=== PATIENT | female | born 1940 | race Caucasian/White ===

== ENCOUNTER 2017-01-19 14:32 | Outpatient (CLI) | payer MEDICARE, OTHER ==
--- NOTE | 2017-01-19 19:27 | RAD ---
PA AND LATERAL OF THE CHEST: 01/19/17 INDICATION: History of dyspnea. COMPARISON: Prior exam dated 03/07/10. FINDINGS: Prominent COPD change is similar. Thoracolumbar scoliosis and vascular calcification of the aortic a rch is similar. No acute air space opacification, pleural effusion, pneumothorax is evident. No def inite acute osseous abnormality is evident. IMPRESSION: No acute cardiopulmonary abnormality. POS: [facility]
== END 2017-01-19 14:33 | disposition home or self-care (01) ==
LOC: CP 14:32
PROVIDERS: ATTEND Internal Medicine
DX: R06.00 Dyspnea, unspecified (principal); F17.200 Nicotine dependence, unspecified, uncomplicated
CPT/HCPCS: 71020; 94010; 94727; 94729

== ENCOUNTER 2017-07-01 10:05 | Outpatient (CLI) | payer MEDICARE, OTHER | END 2017-07-01 10:06 | disposition home or self-care (01) | LOC: BICMAMMO 10:05 | PROVIDERS: ATTEND Internal Medicine | DX: Z12.31 Encounter for screening mammogram for malignant neoplasm of breast (principal); Z13.820 Encounter for screening for osteoporosis; Z85.89 Personal history of malignant neoplasm of other organs and systems; Z78.0 Asymptomatic menopausal state | CPT/HCPCS: 77063; 77067; 77080 ==

== ENCOUNTER 2017-09-17 07:44 | Outpatient (CLI) | payer MEDICARE, OTHER | END 2017-09-17 07:45 | disposition home or self-care (01) | LOC: BICCT 07:44 | PROVIDERS: ATTEND Internal Medicine | DX: R51 Headache (principal) | CPT/HCPCS: 70450 ==

== ENCOUNTER 2018-10-17 15:46 | Inpatient (IN) | payer MEDICARE, OTHER ==
--- NOTE | 2018-10-17 16:44 | RAD ---
EXAM: Lumbar spine 3 views: HISTORY: Injury from a fall 3 weeks ago with hip and lower back pain COMPARISON: None FINDINGS: Diffuse bony demineralization. No evidence for acute fracture or dislocation involving the visualized spine. There are disc osteophytosis and facet arthrosis changes. Minimal grade 1 anterolisthesis of L4 and L5. Mild levoscoliosis. No evidence for a bone lesion. IMPRESSION: Spondylosis. Findings as above.
--- NOTE | 2018-10-17 16:47 | RAD ---
Radiograph sacrum and coccyx 3 views: DATE: 10/17/2018 HISTORY: 78-year-old female with posttraumatic sacrococcygeal pain after fall. FINDINGS: Multilevel severe degenerative disc disease and severe facet DJD at lower lumbar spine. Grade 1 spond ylolisthesis at L4-5. The diffuse osteopenia and the overlying bowel gas and stool, could obscure a sacrococcygeal fracture. Distal tips of gamma nails in the bilateral femoral heads are visualized. On the lateral view, there is mild anterior positioning of the coccyx relative to the lower sacrum. The distal tip of the coccyx is excluded from the coned-down lateral view. IMPRESSION: 1. Questionable fracture at the sacrococcygeal junction. 2. Severe lumbar spondylosis with severe lower level facet osteoarthrosis and L5-S1 severe degenerati ve disc disease, plus grade 1 spondylolisthesis at L4-5.
--- NOTE | 2018-10-17 16:52 | RAD ---
TWO VIEWS RIGHT HIP: Comparison: None. History: Fall with right hip pain. FINDINGS: Two views of the right hip shows the patient to be status post ORIF of the right proximal femur with intramedullary dori. No acute fracture or dislocation is seen. No significant degenerative change is s een in the right hip. IMPRESSION: No evidence of acute osseous abnormality. POS: [facility]
[2018-10-17] MEDS ORDERED: Ondansetron ODT 4 MG TAB ONE (18:00)
--- NOTE | 2018-10-17 20:22 | CT ---
CT PELVIS WITHOUT CONTRAST: HISTORY: Fall three weeks ago with right hip and low back pain. COMPARISON: None. TECHNIQUE: Multiple contiguous axial images were obtained in a CT of the pelvis without contrast. Sagittal and coronal reformats were performed. FINDINGS: Hardware is seen at the proximal aspects of both femurs. There is no evidence of acute fracture or d islocation. Degenerative changes are seen in the lumbar spine. Atherosclerotic calcifications are seen in the ao rta. The visualized intrapelvic structures are otherwise unremarkable. IMPRESSION: No evidence of acute osseous abnormality. POS: [facility]
[2018-10-17] MEDS ORDERED: Ketorolac Tromethamine 30 MG/ML VIAL ONE (20:44)
[2018-10-17] MEDS ORDERED: Ondansetron PF 4 MG/2 ML Vial ONE (22:21)
[2018-10-17] MEDS ORDERED: traZODone HCl 50 MG TAB ONE (22:21)
[2018-10-18] MEDS ORDERED: traMADol HCl 50 MG TAB ONE ×2 (05:44→12:46)
[2018-10-18] MEDS ORDERED: Acetaminophen 650 MG Suppository PR PRN (08:19)
[2018-10-18] MEDS ORDERED: Senokot S 8.6-50 MG TAB PO PRN (08:19)
[2018-10-18] MEDS ORDERED: Sodium Chloride 0.65% Nasal 44 ML BOT EA NARE PRN (08:19)
[2018-10-18] MEDS ORDERED: Nitroglycerin 0.4 MG TAB (25 Tab Bottle) SL PRN (08:19)
[2018-10-18] MEDS ORDERED: Loratadine 10 MG TAB PO PRN (08:19)
[2018-10-18] MEDS ORDERED: Calcium Carbonate 500 MG ChewTAB PO PRN (08:19)
[2018-10-18] MEDS ORDERED: hydrALAZINE 20 MG/ML VIAL SLOW IVP PRN (08:19)
[2018-10-18] MEDS ORDERED: cloNIDine 0.1 MG TAB PO PRN (08:19)
[2018-10-18] MEDS ORDERED: Benzonatate 100 MG CAP PO PRN (08:19)
[2018-10-18] MEDS ORDERED: Bisacodyl 5 MG TAB PO PRN (08:19)
[2018-10-18] MEDS ORDERED: Diabetic Tussin 200 MG/10 ML UDCUP PO PRN (08:19)
[2018-10-18] MEDS ORDERED: Famotidine 20 MG TAB ONE (08:47)
[2018-10-18] MEDS ORDERED: Enoxaparin Sodium 40 MG/0.4 ML SYRINGE ONE (08:49)
[2018-10-18] MEDS ORDERED: Ondansetron PF 4 MG/2 ML Vial ONE (08:49)
[2018-10-18 08:57] LABS: #Eosinphils 0.1 thou/uL (0.0-0.7); #Lymphocytes 0.7 thou/uL (1.20-3.40); #Monocytes 0.5 thou/uL (0.11-0.59); #Neutrophils 4.7 thou/uL (1.40-6.50); %Basophils 0.3 % (0.0-1.0); %Eosinophils 1.7 % (0.0-10.0); %Lymphocytes 12.1 % (21.0-51.0); %Monocytes 7.5 % (0.0-10.0); %Neutrophils 78.5 % (42.0-75.0); Hemoglobin 11.4 g/dL (12.0-16.0); Mean Corpuscular HGB CONC 32.9 g/dL (32.0-36.0); Mean Corpuscular Hemoglobin 29.4 pg (27.0-31.0); Mean Corpuscular Volume 89.1 fL (78.0-98.0); Mean Platelet Volume 6.3 fL (7.4-10.4); Platelet Count 250 thou/uL (130-400); RBC Distribution Width 12.3 % (11.5-14.5); Red Blood Cell (RBC) Count 3.89 mill/uL (4.20-5.40)
[2018-10-18 09:18] LABS: ALT (SGPT) 22 U/L (8-55); AST (SGOT) 25 U/L (5-34); Albumin 3.7 g/dL (3.4-4.8); Alkaline Phosphatase 104 U/L (40-150); Anion Gap 12 mmol/L (10-20); BUN (Urea Nitrogen) 5 mg/dL (9.8-20.1); Bilirubin, Total 0.8 mg/dL (0.2-1.2); Calc. Creatinine Clearance 0 mL/min (70-130); Calcium 8.9 mg/dL (7.8-10.44); Carbon Dioxide 22 mmol/L (23-31); Chloride 90 mmol/L (98-107); Estimated GFR-MDRD 89; Globulin 2.2 g/dL (2.4-3.5); Glucose 91 mg/dL (83-110); Potassium 3.7 mmol/L (3.5-5.1); Protein, Total 5.9 g/dL (6.0-8.3); Sodium 120 mmol/L (136-145)
[2018-10-18] MEDS: Ondansetron PF 4 MG/2 ML Vial IVP PRN ×2 (09:42→21:26)
[2018-10-18] MEDS: Famotidine 20 MG TAB PO SCH ×2 (09:42→21:21)
[2018-10-18] MEDS: Enoxaparin Sodium 40 MG/0.4 ML SYRINGE SC SCH (09:42)
[2018-10-18] MEDS ORDERED: Morphine 4 MG/ML VIAL ONE ×2 (09:56→14:16)
[2018-10-18] MEDS: Morphine 4 MG/ML VIAL SLOW IVP PRN ×2 (09:57→14:28)
[2018-10-18] MEDS: traMADol HCl 50 MG TAB PO PRN ×2 (12:48→21:21)
[2018-10-18] MEDS ORDERED: Sodium Chloride 0.9% 1,000 ML IV SCH (14:45)
[2018-10-18 19:52] VITALS: BMI 21.4
[2018-10-18 20:41] LABS: Anion Gap 13 mmol/L (10-20); BUN (Urea Nitrogen) 4 mg/dL (9.8-20.1); Calc. Creatinine Clearance 68 mL/min (70-130); Calcium 9.2 mg/dL (7.8-10.44); Carbon Dioxide 23 mmol/L (23-31); Chloride 95 mmol/L (98-107); Estimated GFR-MDRD Greater than 90; Glucose 94 mg/dL (83-110); Potassium 3.7 mmol/L (3.5-5.1); Sodium 127 mmol/L (136-145)
[2018-10-18 21:33] LABS: Bilirubin Negative (Negative); Blood, Urine Trace (Negative); Glucose, Urine (Dipstick) Negative (Negative); Leukocyte Trace (Negative); Nitrite Negative (Negative); Protein, Urine (Dipstick) Negative (Neg-Trace); Urobilinogen 0.2 mg/dL (Less than 2)
[2018-10-18 21:35] LABS: Clarity Clear (Clear)
[2018-10-18 21:41] LABS: Bacteria/HPF None Seen HPF (None Seen); RBC/HPF 0-3 HPF (0-3); Squamous Epithelial 0-3 HPF (0-3); WBC/HPF 0-3 HPF (0-3)
[2018-10-18 21:42] LABS: Urine Culture Reflex Yes Yes
[2018-10-19] MEDS: Morphine 4 MG/ML VIAL SLOW IVP PRN ×2 (01:44→20:08)
--- NOTE | 2018-10-19 02:06 | CON ---
DATE OF CONSULTATION: 10/18/2018 CONSULTING PHYSICIAN: Dr. Moreno. REASON FOR CONSULT: Hyponatremia. REASON FOR ADMISSION: Fall. HISTORY OF PRESENT ILLNESS: An 78-year-old elderly white female with past medical history of hypertension, hypothyroidism, basal cell carcinoma, hernia, came to the hospital with above complaints. The patient has been not feeling well and not eating well for the last few days. The patient also was in pain from a fall 3 weeks back. Her son was at the bedside. The patient was not able to give good history. No chest pain or palpitation. No fever or chills. No vomiting or diarrhea. The patient was nauseated last few days. PAST MEDICAL HISTORY: Positive for hypertension, hypothyroidism, basal cell carcinoma, neurogenic bladder. PAST SURGICAL HISTORY: Appendectomy, tonsillectomy, hysterectomy, cholecystectomy, bladder suspension, bilateral hip surgery. HOME MEDICATIONS: Include; 1. Sertraline. 2. Benazepril. 3. Trazodone. 4. Levothyroxine. 5. Methocarbamol. 6. Vitamin D3. 7. . 8. Zetia. 9. Gabapentin. 10. Amitiza. 11. Myrbetriq. 12. Pantoprazole. 13. Ranitidine. 14. VESIcare. 15. Tramadol. ALLERGIES: TO CODEINE, PENICILLIN, PREDNISONE, PYRIDIUM, VALIUM, AND VICODIN. SOCIAL HISTORY: No smoking, alcohol, or illicit drugs. FAMILY HISTORY: No history of kidney disease. REVIEW OF SYSTEMS: REVIEW OF SYSTEMS: CONSTITUTIONAL: Negative for weight loss or gain, ability to conduct usual activities. SKIN: Negative for rash, itching. EYES: Negative for double vision, pain. ENT/MOUTH: Negative for nose bleeding, neck stiffness, pain, tenderness. CARDIOVASCULAR: Negative for palpitations, dyspnea on exertion, orthopnea. RESPIRATORY: Negative for shortness of breath, wheezing, cough, hemoptysis, fever or night sweats. GASTROINTESTINAL: Negative for poor appetite, abdominal pain, heartburn, nausea, vomiting, constipation, or diarrhea. GENITOURINARY: Negative for urgency, frequency, dysuria, nocturia. MUSCULOSKELETAL: Negative for pain, swelling. NEUROLOGIC/PSYCHIATRIC: Negative for anxiety, depression. ALLERGY/IMMUNOLOGIC: Negative for skin rash, bleeding tendency. Rest all negative. PHYSICAL EXAMINATION: GENERAL: This is an elderly, thin female, in no apparent distress. VITAL SIGNS: Temperature 98.3, pulse 101, respiratory rate 16, blood pressure 124/79. HEENT: Atraumatic, normocephalic. Oral mucosa is dry. NECK: Supple. CV: S1 and S2 heard. Rate and rhythm regular. RESPIRATORY: Clear. GI: Abdomen is soft. MUSCULOSKELETAL: No tenderness. No edema. DERMATOLOGIC: No skin rash. NEUROLOGIC: Alert, awake. PSYCHIATRIC: Normal mood and affect. NEUROLOGIC: Alert, awake. Psych: LABORATORY DATA: Hemoglobin is 11.4, potassium 3.7, sodium is 120, bicarb is 22, BUN is 5, creatinine is 0.6. ASSESSMENT AND PLAN: 1. Hyponatremia, most likely from volume depletion. Agree with IV hydration. Medications could be inducing hyponatremia too. 2. Hyperkalemia. 3. Metabolic acidosis, mild. 4. Edema, controlled. 5. Hypertension. 6. Anemia. Continue IV fluids. Monitor serum sodium closely. We will check osmolalities and urine studies. We will follow. Thank you for the consult. Monitor sodium closely. Job ID: [id number]
[2018-10-19] MEDS: traMADol HCl 50 MG TAB PO PRN ×3 (04:07→14:53)
[2018-10-19] MEDS: Ondansetron PF 4 MG/2 ML Vial IVP PRN ×4 (04:09→23:21)
--- NOTE | 2018-10-19 07:48 | SS ---
DATE OF ADMISSION: 10/17/2018 DATE OF DISCHARGE: 10/18/2018 CONDITION AT THE TIME OF DISCHARGE: Stable and improved. DISCHARGE DISPOSITION: Inpatient rehab. PRIMARY CARE PHYSICIAN: Milvia Hall MD DISCHARGE DIAGNOSIS: Intractable back pain, status post fall. HISTORY OF PRESENTING ILLNESS: Ms. Watson is an 78-year-old female with past medical history of hypertension, who presented to the ER after she had sustained a fall. History is mainly obtained by the patient herself, who is very tearful and is breaking up in tears easily during the interview making the interview taking quite difficult. According to the ER history, the patient fell about 3 weeks ago at home and was brought into the emergency room only last night. She was complaining of worsening right hip and posterior buttock pain since the fall. She was having difficulty walking because of the pain. She was unable to get out of the bed and has been progressively getting weaker. She denies any numbness, tingling, nausea, vomiting, diarrhea, chest pain, shortness of breath or head injury. The patient describes the pain as sharp in nature, stabbing in nature, and worsened with activity, really not relieved with rest either. She denies any other injuries. Upon presentation to the emergency room, she was hemodynamically stable with a blood pressure of 124/71 and pulse of 101. In the emergency room, she received multiple pain medications including morphine, tramadol, etc., and Internal Medicine Team was consulted for admission for intractable pain and placement. Multiple imaging studies done in the ER including x-ray of the lumbar spine, sacrum, coccyx, hip were unremarkable for any fractures. A pelvic CT scan was also done, which was also negative for any acute osseous abnormality. PAST MEDICAL HISTORY: 1. Hypertension. 2. Osteoarthritis. 3. Depression. 4. Anxiety. 5. Coronary artery disease. 6. Frequent UTI. SOCIAL HISTORY: She lives with her son according to herself. She has no history of drug, alcohol or tobacco abuse. FAMILY HISTORY: No significant family history of premature coronary artery disease, cancer or stroke. ALLERGIES: CODEINE, DIAZEPAM, HYDROCODONE, PREDNISONE, AND PROPOXYPHENE. HOME MEDICATIONS: Not reconciled, but according to the ER records, she is on followin. Sertraline 100 mg daily. 2. Benazepril 5 mg daily. 3. Trazodone 50 mg daily. 4. . 5. Methocarbamol 500 mg daily. 6. Vitamin D3 1000 units daily. 7. CoQ10 daily. 8. Zetia 10 mg daily. 9. Gabapentin 100 mg daily. 10. Ipratropium b.i.d. 11. . 12. Amitiza 24 mcg b.i.d. 13. Myrbetriq 50 mg daily. 14. Protonix 40 mg daily. 15. Ranitidine daily. 16. VESIcare daily. 17. Tramadol daily. REVIEW OF SYSTEMS: A 14-point review of system is done. It is negative except for those mentioned in the history and physical. CODE STATUS: Code status was not discussed as the patient was discharged as soon as I have examined her as she was accepted for rehab. LABORATORY DATA: I have ordered basic blood work and CBC is unremarkable. Hemoglobin is 11.4. Serum chemistry shows sodium at 120, which seems to be chronic for her, chloride is 90, and bicarb is 22. X-ray of the hip, lumbar spinal, sacrum and coccyx by my review are negative for any acute osseous abnormality. PHYSICAL EXAMINATION: VITAL SIGNS: Most recently, blood pressure 144/80, pulse of 78, respirations 18, temperature 98, and saturating 95% on room air. GENERAL: No acute distress. She is very tearful and keeps crying because she is having trouble with urination. Otherwise in no acute distress. HEENT: Mucous membrane is slightly dry. No oropharyngeal exudate or erythema. Head is normocephalic and atraumatic. Pupils are equal and reactive to light and accommodation. Extraocular movement intact. NECK: Supple without any lymphadenopathy, JVD or bruit. CHEST: Clear to auscultation without any wheezing, rales or rhonchi. HEART: Rate and rhythm are regular without any murmurs, rubs or gallops. ABDOMEN: Soft, nontender, and nondistended with positive bowel sounds. EXTREMITIES: Free of any cyanosis, clubbing or edema. NEUROLOGICAL: Nonfocal. SKIN: Free of any rashes or bruises, feels warm and dry to touch. PSYCHIATRIC: Depressed affect. IMPRESSION AND PLAN: 1. Intractable pain. The patient is status post fall and increasing pain secondary to that. She will be admitted for rehab placement and pain control. We will use heavy narcotics. OT, PT, and case management consultation will be obtained. 2. Hyponatremia, most likely due to polypharmacy. The patient's baseline sodium is around 130. She is on a multitude of antipsychotics, which definitely will cause the low sodium and she also appears clinically dry on exam. We will consult Nephrology and obtain urine and serum osmolality as well as urine sodium, and start her on gentle IV fluid hydration and monitor sodium serially. This appears rather chronic in nature. 3. Hypertension. Restart home medications once reconciled. Meanwhile, she will be started on p.r.n. antihypertensives. 4. Deep venous thrombosis and gastrointestinal prophylaxis. DISPOSITION: Ms. Watson will be admitted under observation status for rehab placement. She has already been accepted for the rehab and was being discharged, but her sodium came back low. At this time, we are trying to hold the discharge and admit her overnight for monitoring of her serum sodium and pain control. Job ID: [id number]
[2018-10-19] MEDS: Famotidine 20 MG TAB PO SCH ×2 (07:49→20:03)
[2018-10-19] MEDS: Enoxaparin Sodium 40 MG/0.4 ML SYRINGE SC SCH (07:49)
[2018-10-19] MEDS ORDERED: Lorazepam 0.5 MG TAB PO PRN (09:10)
[2018-10-19] MEDS ORDERED: BENAZEPRIL HCL 5 MG PO SCH (09:15)
[2018-10-19] MEDS ORDERED: ALIROCUMAB SQ SCH (09:15)
[2018-10-19] MEDS ORDERED: ALIROCUMAB SC SCH (10:00)
[2018-10-19 11:00] LABS: Anion Gap 15 mmol/L (10-20); BUN (Urea Nitrogen) 5 mg/dL (9.8-20.1); Calc. Creatinine Clearance 68 mL/min (70-130); Calcium 9.1 mg/dL (7.8-10.44); Carbon Dioxide 20 mmol/L (23-31); Chloride 95 mmol/L (98-107); Estimated GFR-MDRD Greater than 90; Glucose 107 mg/dL (83-110); Potassium 3.6 mmol/L (3.5-5.1); Sodium 126 mmol/L (136-145)
--- NOTE | 2018-10-19 12:07 | PRG ---
DATE OF SERVICE: 10/19/2018 SUBJECTIVE: Patient was seen and examined at bedside and overnight events noted. Patient denies any shortness of breath or chest pain or palpitation. No history of nausea or vomiting or diarrhea or fever or chills or cramps. OBJECTIVE: GENERAL: This is a well-built female, in no apparent distress. VITAL SIGNS: Temperature 97.7. Heart rate 100. Respiratory rate 20. Blood pressure 121/73. HEENT: Atraumatic, normocephalic. Oral mucosa is moist NECK: Supple. CARDIOVASCULAR: S1, S2 heard. Rate and rhythm regular. RESPIRATORY: Clear to auscultation. GASTROINTESTINAL: Abdomen is soft. MUSCULOSKELETAL: No tenderness. No edema. DERMATOLOGIC: No skin rash. NEUROLOGIC: Alert and awake and oriented X3. No focal neurologic deficits. Moving all the extremities. PSYCHIATRIC: Mood and affect normal. LABORATORY DATA: Sodium is 126, potassium is 3.6, BUN is 5, creatinine is 0.6. ASSESSMENT AND PLAN: 1. Hyponatremia with improvement in creatinine with IV fluids. We will stop IV fluids and monitor. Continue on fluid restrictions. The patient subsequently having multifactorial. 2. Hyperkalemia, better. 3. Metabolic acidosis. 4. Hypertension, stable. 5. Anemia. We will stop IV fluids and monitor. Continue on fluid restrictions. Job ID: [id number]
[2018-10-19] MEDS: Bisacodyl 10 MG SUPP PR PRN (13:18)
--- NOTE | 2018-10-19 14:18 | PDOC.PN ---
- Subjective Encounter Start Date: 10/19/18 Encounter Start Time: 14:16 Subjective: pt fell just now after sorin seen her.possibly hit her head.no LOC -: care discussed w son in morning & he is worried about her home meds -: pt complained of constipation & burning urination - Objective MAR Reviewed: Yes Vital Signs & Weight: Vital Signs (12 hours) Temp Pulse Resp BP BP Pulse Ox 10/19/18 13:14 151/88 H 10/19/18 12:00 97.8 F 90 16 151/88 H 97 10/19/18 07:44 97.7 F 100 20 121/73 98 10/19/18 04:00 98.4 F 88 18 134/70 96 Weight Weight 128 lb 8 oz I&O: 10/18/18 10/19/18 10/20/18 06:59 06:59 06:59 Intake Total 12 Output Total 825 Balance -825 12 Result Diagrams: 10/18/18 08:47 10/19/18 10:33 Additional Labs: Microbiology 10/18/18 21:42 Urine clean catch Urine Culture - Preliminary NO GROWTH AT 12 HOURS Phys Exam - Physical Examination Constitutional: NAD HEENT: PERRLA, moist MMs, sclera anicteric, oral pharynx no lesions Neck: no nodes, no JVD, supple, full ROM Respiratory: no wheezing, no rales, no rhonchi, clear to auscultation bilateral Cardiovascular: RRR, no significant murmur Gastrointestinal: soft, non-tender, no distention, positive bowel sounds Musculoskeletal: no edema, pulses present Neurological: non-focal, normal sensation, moves all 4 limbs Psychiatric: normal affect, A&O x 3 Dx/Plan (1) Hyponatremia Code(s): E87.1 - HYPO-OSMOLALITY AND HYPONATREMIA Status: Acute Comment: improving.was on NS for supected dehydration.monitor.Hold seroquel and trazodone (2) Fall Code(s): W19.XXXA - UNSPECIFIED FALL, INITIAL ENCOUNTER Status: Acute Comment: stat Head CT and R elbow Xray for pain (3) Polypharmacy Code(s): Z79.899 - OTHER [facility] (CURRENT) DRUG THERAPY Status: Acute (4) HTN (hypertension) Code(s): I10 - ESSENTIAL (PRIMARY) HYPERTENSION Status: Chronic (5) Anxiety Code(s): F41.9 - ANXIETY DISORDER, UNSPECIFIED Status: Chronic Comment: avoid Ativan and methocarbamol as fall risk - Plan plan discussed w/ family, DVT proph w/SCDs care discussed w son at length.i encouraged them to f/u w PCP as pt is on -: multiple psychiatric meds and need to be adjusted.suggested Physchiatrist -: will check head CT to r/o bleed post fall-not on OAC -: DC ativan & Methocarbamol.avoid sedatives -: Hold Discharge for now. * .star tempiric ABx given c/o dusuria .urine Cx pending * am labs * nephrology also followinf for hyponatremia Review of Systems - Review of Systems Constitutional: weakness, malaise. negative: fever, chills, sweats, other Respiratory: negative: Cough, Dry, Shortness of Breath, Hemoptysis, SOB with Excertion, Pleuritic Pain, Sputum, Wheezing Cardiovascular: negative: chest pain, palpitations, orthopnea, paroxysmal nocturnal dyspnea, edema, light headedness, other Gastrointestinal: Constipation. negative: Nausea, Vomiting, Abdominal Pain, Diarrhea, Melena, Hematochezia, Other Genitourinary: Dysuria, Frequency. negative: Incontinence, Hematuria, Retention , Other Musculoskeletal: Other. negative: Neck Pain, Shoulder Pain, Arm Pain, Back Pain , Hand Pain, Leg Pain, Foot Pain Skin: negative: Rash, Lesions, Amando, Bruising, Other Neurological: negative: Weakness, Numbness, Incoordination, Change in Speech, Confusion, Seizures, Other - Medications/Allergies Allergies/Adverse Reactions: Allergies Allergy/AdvReac Type Severity Reaction Status Date / Time No Known Allergies Allergy Unverified 10/18/18 09:33 Medications: Current Medications Acetaminophen (Tylenol) 650 mg PO Q4H PRN PRN Reason: Headache/Fever/Mild Pain (1-3) Acetaminophen (Tylenol) 650 mg NE Q4H PRN PRN Reason: Fever > 101 Ascorbic Acid (Vitamin C) 125 mg PO DAILY SAMARIA Benazepril HCl (Lotensin) 5 mg PO 1200 SAMARIA Last Admin: 10/19/18 13:14 Dose: 5 mg Benzonatate (Tessalon) 100 mg PO Q6H PRN PRN Reason: Cough Bisacodyl (Dulcolax) 10 mg PO DAILYPRN PRN PRN Reason: Constipation Bisacodyl (Dulcolax) 10 mg NE DAILYPRN PRN PRN Reason: Constipation Last Admin: 10/19/18 13:18 Dose: 10 mg Calcium Carbonate (Tums) 1,000 mg PO Q4H PRN PRN Reason: Heartburn or Indigestion Cholecalciferol (Vitamin D3) 1,000 units PO DAILY [facility] Clonidine (Catapres) 0.1 mg PO Q4H PRN PRN Reason: SBP >160 ____ Ezetimibe (Zetia) 10 mg PO QPM SAMARIA Enoxaparin Sodium (Lovenox) 40 mg SC 0900 SAMARIA Last Admin: 10/19/18 07:49 Dose: 40 mg Famotidine (Pepcid) 20 mg PO BID [facility] Gabapentin (Neurontin) 100 mg PO QPM [facility] Guaifenesin (Robitussin Sf) 200 mg PO Q4H PRN PRN Reason: Cough Hydralazine HCl (Apresoline) 10 mg SLOW IVP Q4H PRN PRN Reason: SBP > 170 and HR < 70 Levofloxacin 500 mg/ Device 100 mls @ 100 mls/hr IVPB Q24HR SAMARIA Last Admin: 10/19/18 13:12 Dose: 100 mls Iron/Minerals/Multivitamins (Theragran M) 1 tab PO DAILY [facility] Levothyroxine Sodium (Synthroid) 75 mcg PO 0600 [facility] Loratadine (Claritin) 10 mg PO DAILYPRN PRN PRN Reason: Sinus Symptoms Lubiprostone (Amitiza) 24 mcg PO BID [facility] Mirabegron (Myrbetriq Er) 50 mg PO DAILY [facility] Morphine Sulfate (Morphine) 2 mg SLOW IVP Q4H PRN PRN Reason: SEVERE PAIN Last Admin: 10/19/18 01:44 Dose: 2 mg Nitroglycerin (Nitrostat) 0.4 mg SL Q5MIN PRN PRN Reason: Chest Pain Ondansetron HCl (Zofran) 4 mg IVP Q6H PRN PRN Reason: Nausea/Vomiting Last Admin: 10/19/18 10:16 Dose: 4 mg Pantoprazole Sodium (Protonix) 40 mg PO BID [facility] [D-Mannose] 1 Packet 0 each PO DAILY [facility] Alirocumab [Praluent (Pen] 1 Syringe) 0 each SC Q14D SAMARIA Senna/Docusate Sodium (Senokot S) 2 tab PO BID PRN PRN Reason: Constipation Sodium Chloride (Todd Nasal [place] 0.65%) 0 ml EA NARE QIDPRN PRN PRN Reason: Nasal Congestion Sodium Chloride (Flush - Normal Saline) 10 ml IVF Q12HR SAMARIA Sodium Chloride (Flush - Normal Saline) 10 ml IVF PRN PRN PRN Reason: Saline Flush Tramadol HCl (Ultram) 50 mg PO Q4H PRN PRN Reason: moderate pain Last Admin: 10/19/18 10:18 Dose: 50 mg Trospium (Trospium) 20 mg PO BID SAMARIA
--- NOTE | 2018-10-19 15:29 | CT ---
CT Brain WO Con: 10/19/2018 2:13 PM CLINICAL HISTORY: Head injury related to fall. COMPARISON: 09/17/2017 FINDINGS: Hemorrhage: None. Ventricular system: Enlarged. Related to compensatory dilatation from parenchymal volume loss. Cerebral parenchyma: Microvascular ischemic disease Midline shift: None. Mass: No mass effect. Calvarium: Normal. Visualized Paranasal sinuses: Clear. IMPRESSION: No acute intracranial abnormalities. Mild chronic microvascular ischemic disease.
--- NOTE | 2018-10-19 16:17 | RAD ---
FOUR VIEWS OF THE RIGHT ELBOW: COMPARISON: None. HISTORY: Right elbow pain after a fall. FINDINGS: Four views of the right elbow show a fracture of the olecranon of the proximal ulna which is slightly comminuted. Surrounding soft tissue swelling is seen. No dislocation is present. IMPRESSION: Olecranon fracture of the right proximal ulna. POS: [facility]
[2018-10-19] MEDS: Acetaminophen 325 MG TAB PO PRN (18:05)
[2018-10-19] MEDS: Gabapentin 100 MG CAP PO SCH (20:03)
[2018-10-19] MEDS: Ezetimibe 10 MG TAB PO SCH (20:03)
[2018-10-19] MEDS: Lubiprostone 24 MCG CAP PO SCH ×2 (20:04→20:15)
[2018-10-19] MEDS: Trospium 20 MG TAB PO SCH (20:04)
[2018-10-19] MEDS ORDERED: Non-Formulary Item 1 EACH (Ranitidine Hcl [Ranitidine Hcl] 150 MG) PO SCH (21:00)
[2018-10-19] MEDS ORDERED: Lubiprostone 24 MCG CAP PO SCH (21:00)
[2018-10-20] MEDS: Morphine 4 MG/ML VIAL SLOW IVP PRN ×5 (00:03→20:27)
[2018-10-20] MEDS: traZODone HCl 50 MG TAB PO PRN ×2 (02:02→20:33)
[2018-10-20] MEDS: Ondansetron PF 4 MG/2 ML Vial IVP PRN ×3 (05:03→20:27)
[2018-10-20] MEDS: Levothyroxine Sodium 75 MCG TAB PO SCH (05:05)
[2018-10-20 06:48] LABS: Anion Gap 11 mmol/L (10-20); BUN (Urea Nitrogen) 6 mg/dL (9.8-20.1); Calc. Creatinine Clearance 69 mL/min (70-130); Calcium 9.1 mg/dL (7.8-10.44); Carbon Dioxide 23 mmol/L (23-31); Chloride 92 mmol/L (98-107); Estimated GFR-MDRD Greater than 90; Glucose 110 mg/dL (83-110); Potassium 3.4 mmol/L (3.5-5.1); Sodium 123 mmol/L (136-145)
[2018-10-20] MEDS: Trospium 20 MG TAB PO SCH ×2 (08:33→20:33)
[2018-10-20] MEDS: Famotidine 20 MG TAB PO SCH ×2 (08:33→20:32)
[2018-10-20] MEDS: Multivitamin W/ Minerals 1 TAB PO SCH (08:33)
[2018-10-20] MEDS: Lubiprostone 24 MCG CAP PO SCH ×2 (08:33→20:32)
[2018-10-20] MEDS: Ascorbic Acid 500 mg Chewable Tablet PO SCH (08:34)
[2018-10-20] MEDS ORDERED: Non-Formulary Item 1 EACH (Cholecalciferol (Vitamin D3) [Vitamin D3] 1,000 UNITS) PO SCH (09:00)
[2018-10-20] MEDS ORDERED: LEVOTHYROXINE SODIUM PO SCH (09:00)
[2018-10-20] MEDS ORDERED: D MANNOSE PO SCH ×2 (09:00)
[2018-10-20] MEDS ORDERED: BIOTIN PO SCH (09:00)
[2018-10-20] MEDS ORDERED: ASCORBIC ACID 125 MG PO SCH (09:00)
[2018-10-20] MEDS ORDERED: Methocarbamol 500 MG TAB PO SCH (09:00)
[2018-10-20] MEDS ORDERED: [UNRECOGNIZED DRUG - OTHER] PO SCH (09:00)
[2018-10-20] MEDS ORDERED: MULTIVIT MIN PO SCH (09:00)
[2018-10-20] MEDS ORDERED: Non-Formulary Item 1 EACH (Mirabegron [Myrbetriq] 50 MG) PO SCH (09:00)
[2018-10-20] MEDS ORDERED: FOLIC ACID PO SCH (09:00)
--- NOTE | 2018-10-20 09:59 | OP ---
DATE OF PROCEDURE: 10/20/2018 PREPROCEDURE DIAGNOSES: Right displaced olecranon fracture with skin tear. POSTOPERATIVE DIAGNOSES: Right displaced olecranon fracture with skin tear. OPERATIVE PROCEDURE: Application long-arm splint, right upper extremity. SUPPLIES USED: Size 3 Ortho-Glass with Webril and stockinette and 2 Michael bandages. INDICATION FOR PROCEDURE: The patient fell yesterday evening in the hospital, resulting in a displaced olecranon fracture. Our service was consulted for Orthopedic evaluation. DESCRIPTION OF PROCEDURE: After informed consent was obtained, the patient was positioned appropriately. The right upper extremity was then placed in 90-degree position. We gave her 2 mg of morphine for pain control prior to initiation. Time-out was called. All members of the team agreed upon the patient and procedure. This site was identified with initials. After this, a sterile dressing was placed over the skin tear. Stockinette was rolled over this and this was overwrapped with Webril, then a #3 fiberglass from metacarpal heads up to the proximal two-thirds of brachium. This was over-rolled with Michael bandages, held in 90-degree position, allowed to cure. The patient tolerated the procedure very well before, during, and after, and she remained neurovascular intact after the procedure. She will be remain in the splint for the next 10 to 12 days. She will be seen in clinic in 10 to 12 days. Stable for discharge from Orthopedic standpoint. She may weightbear as tolerated with a platform walker in the right upper extremity. Job ID: [id number]
--- NOTE | 2018-10-20 10:36 | CON ---
DATE OF CONSULTATION: 10/20/2018 REQUESTING PHYSICIAN: Dr. Moreno. CONSULTING PHYSICIAN: Dr. Wyatt Flores. REASON FOR CONSULTATION: Right elbow olecranon fracture. BRIEF CLINICAL HISTORY: Jammie is an 78-year-old female who was admitted to observation on 10/17/2018 after she had a fall at home. She has had multiple falls and she has had 2 prior short troch nail fixations of both hips as a result. She was admitted last night with complaints of buttock pain and discomfort, but CT examination and x-rays of both hips yielded no fracture. She was observed by the medicine team and had been accepted for transfer to rehab, but before she could transfer, apparently she fell in her hospital room, resulting in a right olecranon fracture. Our service was consulted for evaluation of this fracture. PAST MEDICAL HISTORY: Significant for; 1. Long-term chronic pain. 2. Anxiety. 3. Some mild histrionics. 4. She also has osteopenia. 5. Hypertension. 6. Hypothyroidism. PAST SURGICAL HISTORY: 1. Appendectomy. 2. Tonsillectomy. 3. Cholecystectomy. 4. Bilateral hip troch nail fixation. MEDICATIONS: Please see list. PHYSICAL EXAMINATION: Elderly female. She is alert, responsive, and appropriate to examiner. She is very polite, has poor tolerance for pain. The inspection of the right upper extremity demonstrates her to have a skin tear directly over the olecranon, it does not extent past the fascia. She is bruised from proximal 3rd brachium circumferentially down to the proximal 3rd of antebrachium. It is quite swollen and her bruising is significant. Skin tear is not actively bleeding, but is present directly over the olecranon and stellate in about a 2.5 cm x 2.5 cm. IMAGING STUDIES: Four-view right elbow demonstrates her to have a displaced olecranon fracture. IMPRESSION: 1. Right olecranon fracture with displacement. 2. Skin tear. 3. Advanced age with fragile skin. PLAN: 1. The patient will be placed in a long-arm 90-degree splint in neutral. 2. She may weightbear as tolerated with a platform walker. Recommend mobilization. 3. We will see her back in clinic in 10 to 12 days for evaluation. Sling was also placed for comfort and could give consideration to either closed treatment versus open reduction and internal fixation of the olecranon. 4. The patient is stable for transfer to rehab/shelter facility from an orthopedic standpoint. Reconsult as needed. Job ID: [id number]
[2018-10-20] MEDS ORDERED: Sodium Chloride 0.9% 1,000 ML IV SCH (11:00)
--- NOTE | 2018-10-20 12:27 | PRG ---
DATE OF SERVICE: 10/20/2018 SUBJECTIVE: Patient was seen and examined at bedside and overnight events noted. Patient denies any shortness of breath or chest pain or palpitation. No history of nausea or vomiting or diarrhea or fever or chills or cramps. OBJECTIVE: GENERAL: This is an elderly female, in no apparent distress. VITAL SIGNS: Temperature 97.5. Heart rate 107. Respiratory rate 18. Blood pressure 134/77. HEENT: Atraumatic, normocephalic. Oral mucosa is moist NECK: Supple. CARDIOVASCULAR: S1, S2 heard. Rate and rhythm regular. RESPIRATORY: Clear to auscultation. GASTROINTESTINAL: Abdomen is soft. MUSCULOSKELETAL: No tenderness. No edema. DERMATOLOGIC: No skin rash. NEUROLOGIC: Alert and awake and oriented X3. No focal neurologic deficits. Moving all the extremities. PSYCHIATRIC: Mood and affect normal. LABORATORY DATA: Sodium 123, potassium 3.4, BUN is 6, and creatinine 0.7. ASSESSMENT AND PLAN: 1. Hyponatremia, getting worse. The patient is feeling nauseated and is reporting that she is not having good p.o. intake, so plan is to start back on IV fluids and we will recheck sodium. If it is not getting better, pain and nausea. 2. Hyperkalemia, better. 3. Metabolic acidosis. 4. Hypertension. 5. Anemia. We will continue to monitor sodium closely and plan is to start back on IV fluids for now. Job ID: [id number]
[2018-10-20] MEDS ORDERED: Potassium Chloride 20 MEQ TAB PO SCH (13:45)
--- NOTE | 2018-10-20 16:47 | PDOC.PN ---
- Subjective Encounter Start Date: 10/20/18 Encounter Start Time: 16:45 Subjective: c/o nausea and pain and generalsied malaise - Objective MAR Reviewed: Yes Vital Signs & Weight: Vital Signs (12 hours) Temp Pulse Resp BP BP Pulse Ox 10/20/18 12:46 127/75 10/20/18 12:00 98.4 F 100 16 127/75 96 10/20/18 08:30 97.5 F L 107 H 18 125/76 97 Weight Weight 128 lb 8 oz I&O: 10/19/18 10/20/18 10/21/18 06:59 06:59 06:59 Intake Total 1074 Output Total 825 150 Balance -825 924 Result Diagrams: 10/18/18 08:47 10/20/18 05:44 Additional Labs: Microbiology 10/18/18 21:42 Urine clean catch Urine Culture - Preliminary NO GROWTH AT 12 HOURS Phys Exam - Physical Examination Constitutional: NAD HEENT: PERRLA, moist MMs, sclera anicteric, oral pharynx no lesions Neck: no nodes, no JVD, supple, full ROM Respiratory: no wheezing, no rales, no rhonchi, clear to auscultation bilateral Cardiovascular: RRR, no significant murmur, no rub Gastrointestinal: soft, non-tender, no distention, positive bowel sounds Musculoskeletal: no edema, pulses present Neurological: non-focal, normal sensation, moves all 4 limbs Psychiatric: normal affect, A&O x 3 Skin: no rash Dx/Plan (1) Hyponatremia Code(s): E87.1 - HYPO-OSMOLALITY AND HYPONATREMIA Status: Acute Comment: improving.restart NS for supected dehydration.Discussed w Nephrology monitor.Hold seroquel and trazodone (2) Fall Code(s): W19.XXXA - UNSPECIFIED FALL, INITIAL ENCOUNTER Status: Acute Comment: stat Head CT and R elbow Xray for pain (3) Closed olecranon fracture Code(s): S52.023A - DISP FX OF OLECRAN PRO W/O INTARTIC EXTN UNSP ULNA, INIT Status: Acute Qualifiers: Encounter type: initial encounter Laterality: right Qualified Code(s): S52.021A - Displaced fracture of olecranon process without intraarticular extension of right ulna, initial encounter for closed fracture Comment: s/p Splinting by Ortho (4) Polypharmacy Code(s): Z79.899 - 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 poor po intake. -: am labs -: empiric Abx for dysuria but Cx negative so far.DC tomorrow if -ve * . Review of Systems - Review of Systems Constitutional: weakness, malaise. negative: fever, chills, sweats, other Respiratory: negative: Cough, Dry, Shortness of Breath, Hemoptysis, SOB with Excertion, Pleuritic Pain, Sputum, Wheezing Cardiovascular: negative: chest pain, palpitations, orthopnea, paroxysmal nocturnal dyspnea, edema, light headedness, other Gastrointestinal: Nausea. negative: Vomiting, Abdominal Pain, Diarrhea, Constipation, Melena, Hematochezia, Other Genitourinary: negative: Dysuria, Frequency, Incontinence, Hematuria, Retention , Other Musculoskeletal: Back Pain. negative: Neck Pain, Shoulder Pain, Arm Pain, Hand Pain, Leg Pain, Foot Pain, Other Neurological: negative: Weakness, Numbness, Incoordination, Change in Speech, Confusion, Seizures, Other - Medications/Allergies Allergies/Adverse Reactions: Allergies Allergy/AdvReac Type Severity Reaction Status Date / Time No Known Allergies Allergy Unverified 10/18/18 09:33 Medications: Current Medications Acetaminophen (Tylenol) 650 mg PO Q4H PRN PRN Reason: Headache/Fever/Mild Pain (1-3) Last Admin: 10/19/18 18:05 Dose: 650 mg Acetaminophen (Tylenol) 650 mg [place] Q4H PRN PRN Reason: Fever > 101 Ascorbic Acid (Vitamin C) 125 mg PO DAILY [facility] Last Admin: 10/20/18 08:34 Dose: 125 mg Benazepril HCl (Lotensin) 5 mg PO 1200 [facility] Last Admin: 10/20/18 12:46 Dose: Not Given Benzonatate (Tessalon) 100 mg PO Q6H PRN PRN Reason: Cough Bisacodyl (Dulcolax) 10 mg PO DAILYPRN PRN PRN Reason: Constipation Bisacodyl (Dulcolax) 10 mg [place] DAILYPRN PRN PRN Reason: Constipation Last Admin: 10/19/18 13:18 Dose: 10 mg Calcium Carbonate (Tums) 1,000 mg PO Q4H PRN PRN Reason: Heartburn or Indigestion Cholecalciferol (Vitamin D3) 1,000 units PO DAILY [facility] Last Admin: 10/20/18 08:34 Dose: 1,000 units Clonidine (Catapres) 0.1 mg PO Q4H PRN PRN Reason: SBP >160 ____ Ezetimibe (Zetia) 10 mg PO QPM [facility] Last Admin: 10/19/18 20:03 Dose: 10 mg Famotidine (Pepcid) 20 mg PO BID [facility] Last Admin: 10/20/18 08:33 Dose: 20 mg Gabapentin (Neurontin) 100 mg PO QPM [facility] Last Admin: 10/19/18 20:03 Dose: 100 mg Guaifenesin (Robitussin Sf) 200 mg PO Q4H PRN PRN Reason: Cough Hydralazine HCl (Apresoline) 10 mg SLOW IVP Q4H PRN PRN Reason: SBP > 170 and HR < 70 Levofloxacin 500 mg/ Device 100 mls @ 100 mls/hr IVPB Q24HR [facility] Last Admin: 10/20/18 12:35 Dose: 100 mls Sodium Chloride (Normal Saline 0.9%) 1,000 mls @ 100 mls/hr IV .Q10H [facility] Last Admin: 10/20/18 14:46 Dose: 1,000 mls Iron/Minerals/Multivitamins (Theragran M) 1 tab PO DAILY [facility] Last Admin: 10/20/18 08:33 Dose: Not Given Levothyroxine Sodium (Synthroid) 75 mcg PO 0600 [facility] Last Admin: 10/20/18 05:05 Dose: 75 mcg Loratadine (Claritin) 10 mg PO DAILYPRN PRN PRN Reason: Sinus Symptoms Lubiprostone (Amitiza) 24 mcg PO BID [facility] Last Admin: 10/20/18 08:33 Dose: 24 mcg Mirabegron (Myrbetriq Er) 50 mg PO DAILY [facility] Last Admin: 10/20/18 08:33 Dose: 50 mg Morphine Sulfate (Morphine) 2 mg SLOW IVP Q4H PRN PRN Reason: SEVERE PAIN Last Admin: 10/20/18 12:51 Dose: 2 mg Nitroglycerin (Nitrostat) 0.4 mg SL Q5MIN PRN PRN Reason: Chest Pain Ondansetron HCl (Zofran) 4 mg IVP Q6H PRN PRN Reason: Nausea/Vomiting Last Admin: 10/20/18 09:48 Dose: 4 mg Pantoprazole Sodium (Protonix) 40 mg PO BID [facility] Last Admin: 10/20/18 08:34 Dose: 40 mg [D-Mannose] 1 Packet 0 each PO DAILY [facility] Alirocumab [Praluent (Pen] 1 Syringe) 0 each SC Q14D [facility] Senna/Docusate Sodium (Senokot S) 2 tab PO BID PRN PRN Reason: Constipation Sodium Chloride ([place] Nasal [place] 0.65%) 0 ml EA NARE QIDPRN PRN PRN Reason: Nasal Congestion Sodium Chloride (Flush - Normal Saline) 10 ml IVF Q12HR [facility] Last Admin: 10/20/18 08:34 Dose: 10 ml Sodium Chloride (Flush - Normal Saline) 10 ml IVF PRN PRN PRN Reason: Saline Flush Tramadol HCl (Ultram) 50 mg PO Q4H PRN PRN Reason: moderate pain Last Admin: 10/19/18 14:53 Dose: 50 mg Trazodone HCl (Desyrel) 50 mg PO QPM PRN PRN Reason: Insomnia Last Admin: 10/20/18 02:02 Dose: 50 mg Trospium (Trospium) 20 mg PO BID [facility] Last Admin: 10/20/18 08:33 Dose: 20 mg
[2018-10-20 18:37] LABS: Potassium 3.8 mmol/L (3.5-5.1)
[2018-10-20] MEDS: Gabapentin 100 MG CAP PO SCH (20:32)
[2018-10-20] MEDS: Ezetimibe 10 MG TAB PO SCH (20:32)
[2018-10-20] MEDS ORDERED: Tolvaptan 15 MG TAB PO SCH (21:00)
[2018-10-21] MEDS: Acetaminophen 325 MG TAB PO PRN ×3 (04:40→23:43)
[2018-10-21] MEDS: Levothyroxine Sodium 75 MCG TAB PO SCH (04:40)
[2018-10-21] MEDS: Lubiprostone 24 MCG CAP PO SCH ×2 (09:27→20:13)
[2018-10-21] MEDS: Trospium 20 MG TAB PO SCH ×2 (09:27→20:13)
[2018-10-21] MEDS: Famotidine 20 MG TAB PO SCH ×2 (09:27→20:14)
[2018-10-21] MEDS: Ascorbic Acid 500 mg Chewable Tablet PO SCH (09:27)
[2018-10-21] MEDS: Multivitamin W/ Minerals 1 TAB PO SCH (09:27)
[2018-10-21] MEDS: traMADol HCl 50 MG TAB PO PRN ×2 (09:45→18:30)
[2018-10-21 10:29] LABS: Anion Gap 14 mmol/L (10-20); BUN (Urea Nitrogen) 5 mg/dL (9.8-20.1); Calc. Creatinine Clearance 66 mL/min (70-130); Calcium 9.5 mg/dL (7.8-10.44); Carbon Dioxide 22 mmol/L (23-31); Chloride 100 mmol/L (98-107); Estimated GFR-MDRD Greater than 90; Glucose 96 mg/dL (83-110); Potassium 4.3 mmol/L (3.5-5.1); Sodium 132 mmol/L (136-145)
--- NOTE | 2018-10-21 14:23 | PRG ---
DATE OF SERVICE: 10/21/2018 SUBJECTIVE: Patient was seen and examined at bedside and overnight events noted. Patient denies any shortness of breath or chest pain or palpitation. No history of nausea or vomiting or diarrhea or fever or chills or cramps. OBJECTIVE: GENERAL: This is an elderly female, in no apparent distress. VITAL SIGNS: Temperature 98.2. Heart rate 107. Respiratory rate 18. Blood pressure 137/57. HEENT: Atraumatic, normocephalic. Oral mucosa is moist NECK: Supple. CARDIOVASCULAR: S1, S2 heard. Rate and rhythm regular. RESPIRATORY: Clear to auscultation. GASTROINTESTINAL: Abdomen is soft. MUSCULOSKELETAL: No tenderness. No edema. DERMATOLOGIC: No skin rash. NEUROLOGIC: Alert and awake and oriented X3. No focal neurologic deficits. Moving all the extremities. PSYCHIATRIC: Mood and affect normal. LABORATORY DATA: Potassium is 4.3, BUN is 5, and creatinine 0.6. ASSESSMENT AND PLAN: 1. Hyponatremia. Sodium level is better at 133 today. 2. Hyperkalemia, better. 3. Metabolic acidosis. 4. Hypertension. 5. Anemia. 6. Urinary retention. Continue on [place] continue intermittent catheterization . Job ID: [id number]
--- NOTE | 2018-10-21 15:34 | PDOC.PN ---
- Subjective Encounter Start Date: 10/21/18 Encounter Start Time: 14:00 Subjective: awake, no sob -: responds well to verbal stimuli -: is moving all extremities - Objective MAR Reviewed: Yes Vital Signs & Weight: Vital Signs (12 hours) Temp Pulse Resp BP BP Pulse Ox 10/21/18 14:31 98.6 F 101 H 18 120/79 97 10/21/18 14:19 137/54 L 10/21/18 09:30 97 10/21/18 08:00 98.2 F 107 H 18 137/54 L 97 Weight Weight 128 lb 8 oz I&O: 10/20/18 10/21/18 10/22/18 06:59 06:59 06:59 Intake Total 1074 2200 Output Total 150 100 Balance 924 2100 Result Diagrams: 10/18/18 08:47 10/21/18 10:02 Phys Exam - Physical Examination HEENT: PERRLA, moist MMs Neck: no JVD, supple Respiratory: no wheezing, no rales Cardiovascular: RRR, no significant murmur Gastrointestinal: soft, non-tender, positive bowel sounds Musculoskeletal: no edema, pulses present Neurological: non-focal, moves all 4 limbs Dx/Plan (1) Hyponatremia Code(s): E87.1 - HYPO-OSMOLALITY AND HYPONATREMIA Status: Acute Comment: (2) Closed olecranon fracture Code(s): S52.023A - DISP FX OF OLECRAN PRO W/O INTARTIC EXTN UNSP ULNA, INIT Status: Acute Qualifiers: Encounter type: subsequent encounter Laterality: right Comment: s/p Splinting by Ortho (3) Fall Code(s): W19.XXXA - UNSPECIFIED FALL, INITIAL ENCOUNTER Status: Acute Qualifiers: Encounter type: subsequent encounter Qualified Code(s): W19.XXXD - Unspecified fall, subsequent encounter (4) Polypharmacy Code(s): Z79.899 - OTHER [facility] (CURRENT) DRUG THERAPY Status: Chronic (5) HTN (hypertension) Code(s): I10 - ESSENTIAL (PRIMARY) HYPERTENSION Status: Chronic Qualifiers: Hypertension type: essential hypertension Qualified Code(s): I10 - Essential (primary) hypertension (6) Mood disorder Code(s): F39 - UNSPECIFIED MOOD [AFFECTIVE] DISORDER Status: Chronic - Plan hemo/neurostable -: sodium is slowly climbing back to normal -: counselled pt to ambulate with PT -: likely to rehab in am if accepted -: continue benezapril, zetia, neurontin, synthroid, myrbetriq * . Review of Systems - Medications/Allergies Allergies/Adverse Reactions: Allergies Allergy/AdvReac Type Severity Reaction Status Date / Time No Known Allergies Allergy Unverified 10/18/18 09:33 Medications: Current Medications Acetaminophen (Tylenol) 650 mg PO Q4H PRN PRN Reason: Headache/Fever/Mild Pain (1-3) Last Admin: 10/21/18 14:20 Dose: 650 mg Acetaminophen (Tylenol) 650 mg IN Q4H PRN PRN Reason: Fever > 101 Ascorbic Acid (Vitamin C) 125 mg PO DAILY [facility] Last Admin: 10/21/18 09:27 Dose: 125 mg Benazepril HCl (Lotensin) 5 mg PO 1200 [facility] Last Admin: 10/21/18 14:19 Dose: 5 mg Benzonatate (Tessalon) 100 mg PO Q6H PRN PRN Reason: Cough Bisacodyl (Dulcolax) 10 mg PO DAILYPRN PRN PRN Reason: Constipation Bisacodyl (Dulcolax) 10 mg IN DAILYPRN PRN PRN Reason: Constipation Last Admin: 10/19/18 13:18 Dose: 10 mg Calcium Carbonate (Tums) 1,000 mg PO Q4H PRN PRN Reason: Heartburn or Indigestion Cholecalciferol (Vitamin D3) 1,000 units PO DAILY [facility] Last Admin: 10/21/18 09:27 Dose: 1,000 units Clonidine (Catapres) 0.1 mg PO Q4H PRN PRN Reason: SBP >160 ____ Ezetimibe (Zetia) 10 mg PO QPM [facility] Last Admin: 10/20/18 20:32 Dose: 10 mg Famotidine (Pepcid) 20 mg PO BID [facility] Last Admin: 10/21/18 09:27 Dose: 20 mg Gabapentin (Neurontin) 100 mg PO QPM [facility] Last Admin: 10/20/18 20:32 Dose: 100 mg Guaifenesin (Robitussin Sf) 200 mg PO Q4H PRN PRN Reason: Cough Hydralazine HCl (Apresoline) 10 mg SLOW IVP Q4H PRN PRN Reason: SBP > 170 and HR < 70 Iron/Minerals/Multivitamins (Theragran M) 1 tab PO DAILY [facility] Last Admin: 10/21/18 09:27 Dose: 1 tab Levofloxacin (Levaquin) 500 mg PO 0600 [facility] Levothyroxine Sodium (Synthroid) 75 mcg PO 0600 [facility] Last Admin: 10/21/18 04:40 Dose: 75 mcg Loratadine (Claritin) 10 mg PO DAILYPRN PRN PRN Reason: Sinus Symptoms Lubiprostone (Amitiza) 24 mcg PO BID [facility] Last Admin: 10/21/18 09:27 Dose: 24 mcg Mirabegron (Myrbetriq Er) 50 mg PO DAILY [facility] Last Admin: 10/21/18 09:27 Dose: 50 mg Morphine Sulfate (Morphine) 2 mg SLOW IVP Q4H PRN PRN Reason: SEVERE PAIN Last Admin: 10/20/18 20:27 Dose: 2 mg Nitroglycerin (Nitrostat) 0.4 mg SL Q5MIN PRN PRN Reason: Chest Pain Ondansetron HCl (Zofran) 4 mg IVP Q6H PRN PRN Reason: Nausea/Vomiting Last Admin: 10/20/18 20:27 Dose: 4 mg Pantoprazole Sodium (Protonix) 40 mg PO BID [facility] Last Admin: 10/21/18 09:27 Dose: 40 mg Alirocumab [Praluent (Pen] 1 Syringe) 0 each SC Q14D [facility] Senna/Docusate Sodium (Senokot S) 2 tab PO BID PRN PRN Reason: Constipation Sodium Chloride ([place] Nasal [place] 0.65%) 0 ml EA NARE QIDPRN PRN PRN Reason: Nasal Congestion Sodium Chloride (Flush - Normal Saline) 10 ml IVF Q12HR [facility] Last Admin: 10/21/18 09:27 Dose: 10 ml Sodium Chloride (Flush - Normal Saline) 10 ml IVF PRN PRN PRN Reason: Saline Flush Tramadol HCl (Ultram) 50 mg PO Q4H PRN PRN Reason: moderate pain Last Admin: 10/21/18 09:45 Dose: 50 mg Trazodone HCl (Desyrel) 50 mg PO QPM PRN PRN Reason: Insomnia Last Admin: 10/20/18 20:33 Dose: 50 mg Trospium (Trospium) 20 mg PO BID [facility] Last Admin: 10/21/18 09:27 Dose: 20 mg
[2018-10-21] MEDS: Ondansetron ODT 4 MG TAB PO PRN (18:29)
[2018-10-21] MEDS: Ezetimibe 10 MG TAB PO SCH (20:13)
[2018-10-21] MEDS: Gabapentin 100 MG CAP PO SCH (20:14)
[2018-10-21] MEDS: traZODone HCl 50 MG TAB PO PRN (21:57)
[2018-10-22] MEDS: Levothyroxine Sodium 75 MCG TAB PO SCH (05:35)
[2018-10-22] MEDS: traMADol HCl 50 MG TAB PO PRN ×3 (05:36→18:33)
[2018-10-22] MEDS: Ondansetron ODT 4 MG TAB PO PRN (06:04)
[2018-10-22] MEDS: Acetaminophen 325 MG TAB PO PRN ×2 (07:56→20:41)
[2018-10-22] MEDS: Ascorbic Acid 500 mg Chewable Tablet PO SCH ×2 (07:57→09:41)
[2018-10-22] MEDS: Trospium 20 MG TAB PO SCH ×3 (07:58→20:36)
[2018-10-22] MEDS: Multivitamin W/ Minerals 1 TAB PO SCH ×2 (07:59→09:41)
[2018-10-22] MEDS: Famotidine 20 MG TAB PO SCH ×3 (07:59→20:37)
[2018-10-22] MEDS: Lubiprostone 24 MCG CAP PO SCH ×2 (07:59→20:37)
[2018-10-22] MEDS ORDERED: ALPRAZolam 1 MG TAB PO SCH (09:00)
--- NOTE | 2018-10-22 13:28 | PDOC.PN ---
- Subjective Encounter Start Date: 10/22/18 Encounter Start Time: 07:00 Subjective: awake, is a bit anxious -: she does not remember seeing me yesterday -: no chest pain, abd pain or sob - Objective MAR Reviewed: Yes Vital Signs & Weight: Vital Signs (12 hours) Temp Pulse Resp BP BP BP Pulse Ox 10/22/18 11:28 129/81 10/22/18 08:44 97.5 F L 96 18 129/81 94 L 10/22/18 08:00 94 L 10/22/18 04:00 99.0 F 98 20 112/73 95 Weight Weight 128 lb 8 oz I&O: 10/21/18 10/22/18 10/23/18 06:59 06:59 06:59 Intake Total 2200 1200 Output Total 100 3050 Balance 2100 -1850 Result Diagrams: 10/18/18 08:47 10/21/18 10:02 Phys Exam - Physical Examination HEENT: PERRLA, moist MMs Neck: no JVD, supple Respiratory: no wheezing, no rales Cardiovascular: RRR, no significant murmur Gastrointestinal: soft, non-tender, positive bowel sounds Musculoskeletal: no edema, pulses present Neurological: non-focal, moves all 4 limbs Dx/Plan (1) Hyponatremia Code(s): E87.1 - HYPO-OSMOLALITY AND HYPONATREMIA Status: Acute Comment: resolving (2) Closed olecranon fracture Code(s): S52.023A - DISP FX OF OLECRAN PRO W/O INTARTIC EXTN UNSP ULNA, INIT Status: Acute Qualifiers: Encounter type: subsequent encounter Laterality: right Comment: s/p Splinting by Ortho (3) Fall Code(s): W19.XXXA - UNSPECIFIED FALL, INITIAL ENCOUNTER Status: Acute Qualifiers: Encounter type: subsequent encounter Qualified Code(s): W19.XXXD - Unspecified fall, subsequent encounter (4) Polypharmacy Code(s): Z79.899 - OTHER DOCUMENT IMPROVEMENT SPECIALIST (CURRENT) DRUG THERAPY Status: Chronic (5) HTN (hypertension) Code(s): I10 - ESSENTIAL (PRIMARY) HYPERTENSION Status: Chronic Qualifiers: Hypertension type: essential hypertension Qualified Code(s): I10 - Essential (primary) hypertension (6) Mood disorder Code(s): F39 - UNSPECIFIED MOOD [AFFECTIVE] DISORDER Status: Chronic - Plan hemostable -: xanax x 1 dose for anxiety issues -: may dc anytime if rehab accepts her -: continue benazepril, neurontin, zetia, myrbetriq, amitiza -: mobilize as tolerated * . Review of Systems - Medications/Allergies Allergies/Adverse Reactions: Allergies Allergy/AdvReac Type Severity Reaction Status Date / Time No Known Allergies Allergy Unverified 10/18/18 09:33 Medications: Current Medications Acetaminophen (Tylenol) 650 mg PO Q4H PRN PRN Reason: Headache/Fever/Mild Pain (1-3) Last Admin: 10/22/18 07:56 Dose: 650 mg Acetaminophen (Tylenol) 650 mg [place] Q4H PRN PRN Reason: Fever > 101 Ascorbic Acid (Vitamin C) 125 mg PO DAILY [facility] Last Admin: 10/22/18 09:41 Dose: Not Given Benazepril HCl (Lotensin) 5 mg PO 1200 [facility] Last Admin: 10/22/18 11:28 Dose: 5 mg Benzonatate (Tessalon) 100 mg PO Q6H PRN PRN Reason: Cough Bisacodyl (Dulcolax) 10 mg PO DAILYPRN PRN PRN Reason: Constipation Bisacodyl (Dulcolax) 10 mg [place] DAILYPRN PRN PRN Reason: Constipation Last Admin: 10/19/18 13:18 Dose: 10 mg Calcium Carbonate (Tums) 1,000 mg PO Q4H PRN PRN Reason: Heartburn or Indigestion Cholecalciferol (Vitamin D3) 1,000 units PO DAILY [facility] Last Admin: 10/22/18 07:59 Dose: 1,000 units Clonidine (Catapres) 0.1 mg PO Q4H PRN PRN Reason: SBP >160 ____ Ezetimibe (Zetia) 10 mg PO QPM [facility] Last Admin: 10/21/18 20:13 Dose: 10 mg Famotidine (Pepcid) 20 mg PO BID [facility] Last Admin: 10/22/18 09:40 Dose: Not Given Gabapentin (Neurontin) 100 mg PO QPM [facility] Last Admin: 10/21/18 20:14 Dose: 100 mg Guaifenesin (Robitussin Sf) 200 mg PO Q4H PRN PRN Reason: Cough Hydralazine HCl (Apresoline) 10 mg SLOW IVP Q4H PRN PRN Reason: SBP > 170 and HR < 70 Iron/Minerals/Multivitamins (Theragran M) 1 tab PO DAILY [facility] Last Admin: 10/22/18 09:41 Dose: Not Given Levofloxacin (Levaquin) 500 mg PO 0600 [facility] Last Admin: 10/22/18 05:35 Dose: 500 mg Levothyroxine Sodium (Synthroid) 75 mcg PO 0600 [facility] Last Admin: 10/22/18 05:35 Dose: 75 mcg Loratadine (Claritin) 10 mg PO DAILYPRN PRN PRN Reason: Sinus Symptoms Lubiprostone (Amitiza) 24 mcg PO BID [facility] Last Admin: 10/22/18 07:59 Dose: 24 mcg Mirabegron (Myrbetriq Er) 50 mg PO DAILY [facility] Last Admin: 10/22/18 07:59 Dose: 50 mg Nitroglycerin (Nitrostat) 0.4 mg SL Q5MIN PRN PRN Reason: Chest Pain Ondansetron HCl (Zofran Odt) 4 mg PO Q6H PRN PRN Reason: Nausea/Vomiting Last Admin: 10/22/18 06:04 Dose: 4 mg Pantoprazole Sodium (Protonix) 40 mg PO BID [facility] Last Admin: 10/22/18 09:41 Dose: Not Given Alirocumab [Praluent (Pen] 1 Syringe) 0 each SC Q14D [facility] Senna/Docusate Sodium (Senokot S) 2 tab PO BID PRN PRN Reason: Constipation Sodium Chloride ([place] Nasal [place] 0.65%) 0 ml EA NARE QIDPRN PRN PRN Reason: Nasal Congestion Sodium Chloride (Flush - Normal Saline) 10 ml IVF Q12HR [facility] Last Admin: 10/22/18 08:00 Dose: Not Given Sodium Chloride (Flush - Normal Saline) 10 ml IVF PRN PRN PRN Reason: Saline Flush Tramadol HCl (Ultram) 50 mg PO Q4H PRN PRN Reason: moderate pain Last Admin: 10/22/18 05:36 Dose: 50 mg Trazodone HCl (Desyrel) 50 mg PO QPM PRN PRN Reason: Insomnia Last Admin: 10/21/18 21:57 Dose: 50 mg Trospium (Trospium) 20 mg PO BID [facility] Last Admin: 10/22/18 09:41 Dose: Not Given
--- NOTE | 2018-10-22 13:55 | PRG ---
DATE OF SERVICE: 10/22/2018 SUBJECTIVE: Patient was seen and examined at bedside and overnight events noted. Patient denies any shortness of breath or chest pain or palpitation. No history of nausea or vomiting or diarrhea or fever or chills or cramps. OBJECTIVE: GENERAL: This is an elderly female, in no apparent distress. VITAL SIGNS: Temperature 97.5, pulse 93, respiratory rate 18, blood pressure 129/81. HEENT: Atraumatic, normocephalic. Oral mucosa is moist NECK: Supple. CARDIOVASCULAR: S1, S2 heard. Rate and rhythm regular. RESPIRATORY: Clear to auscultation. GASTROINTESTINAL: Abdomen is soft. MUSCULOSKELETAL: No tenderness. No edema. DERMATOLOGIC: No skin rash. NEUROLOGIC: Alert and awake and oriented X3. No focal neurologic deficits. Moving all the extremities. PSYCHIATRIC: Mood and affect normal. LABORATORY DATA: Potassium is 4.3, sodium is 132. ASSESSMENT AND PLAN: 1. Hyponatremia, better. 2. Hyperkalemia. 3. Metabolic acidosis. 4. Hypertension. 5. Anemia. 6. Sodium level is better, follow. Job ID: [id number]
[2018-10-22] MEDS: Ezetimibe 10 MG TAB PO SCH (20:36)
[2018-10-22] MEDS: Gabapentin 100 MG CAP PO SCH (20:37)
[2018-10-22] MEDS: traZODone HCl 50 MG TAB PO PRN (22:27)
[2018-10-23] MEDS: traMADol HCl 50 MG TAB PO PRN ×3 (03:35→15:19)
[2018-10-23] MEDS: Levothyroxine Sodium 75 MCG TAB PO SCH (06:10)
[2018-10-23] MEDS: Trospium 20 MG TAB PO SCH (08:52)
[2018-10-23] MEDS: Famotidine 20 MG TAB PO SCH (08:52)
[2018-10-23] MEDS: Ascorbic Acid 500 mg Chewable Tablet PO SCH (09:02)
[2018-10-23] MEDS: Multivitamin W/ Minerals 1 TAB PO SCH (09:02)
[2018-10-23] MEDS: Lubiprostone 24 MCG CAP PO SCH (09:04)
[2018-10-23 10:27] LABS: Anion Gap 13 mmol/L (10-20); BUN (Urea Nitrogen) 6 mg/dL (9.8-20.1); Calc. Creatinine Clearance 66 mL/min (70-130); Calcium 9.5 mg/dL (7.8-10.44); Carbon Dioxide 23 mmol/L (23-31); Chloride 97 mmol/L (98-107); Estimated GFR-MDRD Greater than 90; Glucose 91 mg/dL (83-110); Potassium 3.6 mmol/L (3.5-5.1); Sodium 129 mmol/L (136-145)
--- NOTE | 2018-10-23 11:30 | PDOC.PN ---
- Subjective Encounter Start Date: 10/23/18 Encounter Start Time: 10:00 Subjective: awake, is more calm and not anxious this am -: will be shortly ordering her food - Objective MAR Reviewed: Yes Vital Signs & Weight: Vital Signs (12 hours) Temp Pulse Resp BP BP Pulse Ox 10/23/18 07:00 97.5 F L 97 18 118/74 97 10/23/18 03:38 98 F 86 20 108/66 Weight Weight 128 lb 8 oz I&O: 10/22/18 10/23/18 10/24/18 06:59 06:59 06:59 Intake Total 1200 840 Output Total 3050 1100 Balance -1850 -260 Result Diagrams: 10/18/18 08:47 10/23/18 09:42 Phys Exam - Physical Examination HEENT: PERRLA, moist MMs Neck: no JVD, supple Respiratory: no wheezing, no rales Cardiovascular: RRR, no significant murmur Gastrointestinal: soft, non-tender, positive bowel sounds Musculoskeletal: no edema, pulses present right UE in splint Neurological: non-focal, moves all 4 limbs Psychiatric: normal affect, A&O x 3 Dx/Plan (1) Hyponatremia Code(s): E87.1 - HYPO-OSMOLALITY AND HYPONATREMIA Status: Acute Comment: resolving (2) Closed olecranon fracture Code(s): S52.023A - DISP FX OF OLECRAN PRO W/O INTARTIC EXTN UNSP ULNA, INIT Status: Acute Qualifiers: Encounter type: subsequent encounter Laterality: right Comment: s/p Splinting by Ortho (3) Fall Code(s): W19.XXXA - UNSPECIFIED FALL, INITIAL ENCOUNTER Status: Acute Qualifiers: Encounter type: subsequent encounter Qualified Code(s): W19.XXXD - Unspecified fall, subsequent encounter (4) Polypharmacy Code(s): Z79.899 - OTHER DIRECTOR WHOLESALE (CURRENT) DRUG THERAPY Status: Chronic (5) HTN (hypertension) Code(s): I10 - ESSENTIAL (PRIMARY) HYPERTENSION Status: Chronic Qualifiers: Hypertension type: essential hypertension Qualified Code(s): I10 - Essential (primary) hypertension (6) Mood disorder Code(s): F39 - UNSPECIFIED MOOD [AFFECTIVE] DISORDER Status: Chronic - Plan hemostable -: may anytime rehab takes her -: continue levaquin x 2 more days and dc -: is on benazepril, amitiza, xanax prn, neurontin, synthroid and myrbetriq * . Review of Systems - Medications/Allergies Allergies/Adverse Reactions: Allergies Allergy/AdvReac Type Severity Reaction Status Date / Time No Known Allergies Allergy Unverified 10/18/18 09:33 Medications: Current Medications Acetaminophen (Tylenol) 650 mg PO Q4H PRN PRN Reason: Headache/Fever/Mild Pain (1-3) Last Admin: 10/22/18 20:41 Dose: 650 mg Acetaminophen (Tylenol) 650 mg MT Q4H PRN PRN Reason: Fever > 101 Ascorbic Acid (Vitamin C) 125 mg PO DAILY [facility] Last Admin: 10/23/18 09:02 Dose: 125 mg Benazepril HCl (Lotensin) 5 mg PO 1200 [facility] Last Admin: 10/22/18 11:28 Dose: 5 mg Benzonatate (Tessalon) 100 mg PO Q6H PRN PRN Reason: Cough Bisacodyl (Dulcolax) 10 mg PO DAILYPRN PRN PRN Reason: Constipation Bisacodyl (Dulcolax) 10 mg MT DAILYPRN PRN PRN Reason: Constipation Last Admin: 10/19/18 13:18 Dose: 10 mg Calcium Carbonate (Tums) 1,000 mg PO Q4H PRN PRN Reason: Heartburn or Indigestion Cholecalciferol (Vitamin D3) 1,000 units PO DAILY [facility] Last Admin: 10/23/18 08:52 Dose: 1,000 units Clonidine (Catapres) 0.1 mg PO Q4H PRN PRN Reason: SBP >160 ____ Ezetimibe (Zetia) 10 mg PO QPM [facility] Last Admin: 10/22/18 20:36 Dose: 10 mg Famotidine (Pepcid) 20 mg PO BID [facility] Last Admin: 10/23/18 08:52 Dose: 20 mg Gabapentin (Neurontin) 100 mg PO QPM [facility] Last Admin: 10/22/18 20:37 Dose: 100 mg Guaifenesin (Robitussin Sf) 200 mg PO Q4H PRN PRN Reason: Cough Hydralazine HCl (Apresoline) 10 mg SLOW IVP Q4H PRN PRN Reason: SBP > 170 and HR < 70 Iron/Minerals/Multivitamins (Theragran M) 1 tab PO DAILY [facility] Last Admin: 10/23/18 09:02 Dose: 1 tab Levofloxacin (Levaquin) 500 mg PO 0600 [facility] Last Admin: 10/23/18 06:10 Dose: 500 mg Levothyroxine Sodium (Synthroid) 75 mcg PO 0600 [facility] Last Admin: 10/23/18 06:10 Dose: 75 mcg Loratadine (Claritin) 10 mg PO DAILYPRN PRN PRN Reason: Sinus Symptoms Lubiprostone (Amitiza) 24 mcg PO BID [facility] Last Admin: 10/23/18 09:04 Dose: 24 mcg Mirabegron (Myrbetriq Er) 50 mg PO DAILY [facility] Last Admin: 10/23/18 09:05 Dose: 50 mg Nitroglycerin (Nitrostat) 0.4 mg SL Q5MIN PRN PRN Reason: Chest Pain Ondansetron HCl (Zofran Odt) 4 mg PO Q6H PRN PRN Reason: Nausea/Vomiting Last Admin: 10/22/18 06:04 Dose: 4 mg Pantoprazole Sodium (Protonix) 40 mg PO BID [facility] Last Admin: 10/23/18 09:02 Dose: 40 mg Alirocumab [Praluent (Pen] 1 Syringe) 0 each SC Q14D [facility] Senna/Docusate Sodium (Senokot S) 2 tab PO BID PRN PRN Reason: Constipation Sodium Chloride ([place] Nasal [place] 0.65%) 0 ml EA NARE QIDPRN PRN PRN Reason: Nasal Congestion Sodium Chloride (Flush - Normal Saline) 10 ml IVF Q12HR [facility] Last Admin: 10/23/18 09:05 Dose: Not Given Sodium Chloride (Flush - Normal Saline) 10 ml IVF PRN PRN PRN Reason: Saline Flush Tramadol HCl (Ultram) 50 mg PO Q4H PRN PRN Reason: moderate pain Last Admin: 10/23/18 09:00 Dose: 50 mg Trazodone HCl (Desyrel) 50 mg PO QPM PRN PRN Reason: Insomnia Last Admin: 10/22/18 22:27 Dose: 50 mg Trospium (Trospium) 20 mg PO BID [facility] Last Admin: 10/23/18 08:52 Dose: 20 mg
[2018-10-23] MEDS: Acetaminophen 325 MG TAB PO PRN (11:58)
[2018-10-23] MEDS: Ondansetron ODT 4 MG TAB PO PRN (12:03)
[2018-10-23] MEDS: Bisacodyl 10 MG SUPP PR PRN (13:18)
--- NOTE | 2018-10-23 14:15 | PRG ---
DATE OF SERVICE: 10/23/2018 SUBJECTIVE: Patient was seen and examined at bedside and overnight events noted. Patient denies any shortness of breath or chest pain or palpitation. No history of nausea or vomiting or diarrhea or fever or chills or cramps. OBJECTIVE: GENERAL: This is a well-built female in no apparent distress. VITAL SIGNS: Temperature 97.5. Heart rate 77. Respiratory rate 18. Blood pressure 118/74. HEENT: Atraumatic, normocephalic. Oral mucosa is moist NECK: Supple. CARDIOVASCULAR: S1, S2 heard. Rate and rhythm regular. RESPIRATORY: Clear to auscultation. GASTROINTESTINAL: Abdomen is soft. MUSCULOSKELETAL: No tenderness. No edema. DERMATOLOGIC: No skin rash. NEUROLOGIC: Alert and awake and oriented X3. No focal neurologic deficits. Moving all the extremities. PSYCHIATRIC: Mood and affect normal. LABORATORY DATA: Sodium is 129, potassium is 3.6, BUN is 6, creatinine is 0.7. ASSESSMENT AND PLAN: 1. Hyponatremia, stable. 2. Hyperkalemia, better. 3. Metabolic acidosis. 4. Hypertension. 5. Anemia. Advised the patient to limit fluid intake. Continue on 1500 mL per day fluid restriction. Job ID: [id number]
[2018-10-23 15:38] VITALS: BP 104/62; TEMP 97.9
--- NOTE | 2018-10-25 10:29 | DIS ---
DATE OF ADMISSION: 10/20/2018 DATE OF DISCHARGE: 10/23/2018 DISCHARGE DISPOSITION: To inpatient rehab. PRIMARY DISCHARGE DIAGNOSES: 1. Hyponatremia, resolving. 2. Olecranon fracture on the right secondary to fall, is in a splint. 3. History of falls. 4. Polypharmacy. 5. Hypertension. 6. Mood disorder. PROCEDURES DONE DURING HOSPITALIZATION: Lumbar spine 3 views done showed spondylosis. No evidence of bony lesion or acute fracture or dislocation seen in the spine. CT pelvis without contrast showed no acute osseous abnormality. X-ray of sacrum and coccyx 3 views done showed questionable fracture of the sacrococcygeal junction, severe lumbar spondylosis. A 2-view right hip x-ray done showed no acute osseous abnormality. Right elbow 4 views showed olecranon fracture of the right proximal ulna. CT brain without contrast showed no acute intracranial abnormalities. The patient had application of long-arm splint of right upper extremity for right displaced olecranon fracture with skin tear by Carlos Allan PA-C, Orthopedic Surgery. Urine culture was contaminated. H and H 11 and 34, platelet count 250. Sodium level on the day of discharge is 129, had dropped down to 120 on the day of admission. BUN 6 and creatinine 0.6. Serum bicarb 23. Albumin was 3.7. INPATIENT CONSULT: 1. Kale Pierce MD, for Nephrology. 2. Wyatt Flores MD/Carlos Allan PA-C, for Orthopedic Surgery. DISCHARGE PLAN: The patient to follow up with Dr. Flores as advised and primary care physician in 1 week. DISCHARGE MEDICATIONS: 1. Praluent 150 mg every 2 weeks as before. 2. Benazepril 5 mg daily. 3. Vitamin C 125 mg daily. 4. Doxycycline 40 mg daily. 5. Zetia 10 mg p.o. q.p.m. 6. Gabapentin 100 mg p.o. q.p.m. 7. Levothyroxine 75 mcg p.o. daily. 8. Lorazepam 0.5 mg p.o. 3 times daily p.r.n. for anxiety. 9. Amitiza 24 mcg p.o. twice daily. 10. Myrbetriq extended release 50 mg daily. 11. Protonix 40 mg twice daily. 12. Sertraline 100 mg twice daily. 13. VESIcare 5 mg p.o. q.p.m. 14. Ultram p.r.n. for pain. 15. CoQ10 at 200 mg p.o. daily. 16. Levaquin 500 mg p.o. daily for another 3 days for suspected UTI. 17. Trazodone 50 mg p.o. q.p.m. p.r.n. for insomnia. ALLERGIES: NO KNOWN DRUG ALLERGIES. BRIEF COURSE DURING HOSPITALIZATION: The patient initially was brought to emergency room with history of falls. She has had multiple imaging studies done as described above. The patient was found to have had olecranon fracture and has had consultation with Dr. Flores/Carlos Allan. She has had application of long-arm splint for the right olecranon displaced fracture. Her sodium was 120 and has had consultation with Dr. Pierce. Her discharge sodium is around 129. She is hemodynamically and neurologically stable. The patient has a mood disorder with extreme anxiety at times. Due to deconditioning, she is being discharged to inpatient rehab for further recuperation. Prior to discharge, she is tolerating oral solid diet. She is working with Physical Therapy as well. A total of 35 minutes was spent on discharge plan. Please see a [id number] documentation on [facility] for the day of discharge. Job ID: [id number]
== END 2018-10-23 16:34 | DRG 641 ==
LOC: ERS 15:46 → ERHOLD 21:00 → T4-B 10-18 18:59 → OBSVTOIN 10-20 08:06
PROVIDERS: ADMIT Internal Medicine; ATTEND Internal Medicine
PROC: 2W3CX1Z Immobilization of Right Lower Arm using Splint (ICD-10-PCS; principal; 2018-10-20)
DX: E87.1 Hypo-osmolality and hyponatremia (principal); I10 Essential (primary) hypertension; F41.9 Anxiety disorder, unspecified; K59.00 Constipation, unspecified; M19.90 Unspecified osteoarthritis, unspecified site; F32.9 Major depressive disorder, single episode, unspecified; I25.10 Atherosclerotic heart disease of native coronary artery without angina pectoris; E03.9 Hypothyroidism, unspecified; N31.9 Neuromuscular dysfunction of bladder, unspecified; E86.9 Volume depletion, unspecified; E87.5 Hyperkalemia; E87.2 Acidosis; S52.021A Displaced fracture of olecranon process without intraarticular extension of right ulna, initial encounter for closed fracture; Y92.239 Unspecified place in hospital as the place of occurrence of the external cause; F39 Unspecified mood [affective] disorder; R33.9 Retention of urine, unspecified; D64.9 Anemia, unspecified; W01.0XXA Fall on same level from slipping, tripping and stumbling without subsequent striking against object, initial encounter; Z90.49 Acquired absence of other specified parts of digestive tract; Z79.899 Other long term (current) drug therapy; Z90.89 Acquired absence of other organs; Z90.710 Acquired absence of both cervix and uterus; Z88.0 Allergy status to penicillin; Z88.5 Allergy status to narcotic agent
CPT/HCPCS: 36415; 51701; 70450; 72100; 72192; 72220; 80048; 80053; 81001; 83935; 84300; 85025; 87086; 96361; 96374; 96375; A4353; J1650; J1885; J1956; J2270; J2405; Q0162

== ENCOUNTER 2020-09-12 02:44 | Inpatient (IN) | payer MEDICARE, OTHER ==
[2020-09-12] MEDS ORDERED: Bisacodyl 10 MG SUPP PR PRN (13:18)
[2020-09-12] MEDS ORDERED: Senokot S 8.6-50 MG TAB PO PRN (13:18)
[2020-09-12] MEDS ORDERED: Guaifenesin DM 100-10/5 ML UDCUP PO PRN (13:18)
[2020-09-12 13:20] LABS: #Lymphocytes 0.9 thou/uL (1.20-3.40); #Monocytes 0.2 thou/uL (0.11-0.59); #Neutrophils 12.8 thou/uL (1.40-6.50); %Basophils 0.2 % (0.0-1.0); %Eosinophils 0.3 % (0.0-10.0); %Lymphocytes 6.3 % (21.0-51.0); %Monocytes 1.6 % (0.0-10.0); %Neutrophils 91.7 % (42.0-75.0); Hemoglobin 10.1 g/dL (12.0-16.0); Mean Corpuscular HGB CONC 32.9 g/dL (32.0-36.0); Mean Corpuscular Hemoglobin 28.1 pg (27.0-31.0); Mean Corpuscular Volume 85.4 fL (78.0-98.0); Mean Platelet Volume 8.2 fL (7.4-10.4); Platelet Count 211 thou/uL (130-400); RBC Distribution Width 17.3 % (11.5-14.5)
[2020-09-12 13:36] LABS: Anion Gap 15 mmol/L (10-20); BUN (Urea Nitrogen) 27 mg/dL (9.8-20.1); Calc. Creatinine Clearance 0 mL/min (70-130); Carbon Dioxide 31 mmol/L (23-31); Chloride 91 mmol/L (98-107); Glucose 108 mg/dL (83-110); Sodium 135 mmol/L (136-145)
[2020-09-12 13:39] LABS: Potassium 2.4 mmol/L (3.5-5.1)
[2020-09-12] MEDS ORDERED: Furosemide 20 MG/2 ML VIAL SLOW IVP SCH (14:00)
[2020-09-12] MEDS: Lorazepam 0.5 MG TAB PO PRN (14:09)
[2020-09-12 16:38] LABS: SARS-CoV-2 NAA Rapid Test Not Detected (NotDetected)
[2020-09-12] MEDS: Carvedilol 3.125 MG TAB PO SCH (17:13)
[2020-09-12] MEDS: Potassium Chloride 20 MEQ TAB PO SCH (17:14)
[2020-09-12] MEDS: Sodium Chloride 0.9% 1,000 ML IV SCH (17:24)
[2020-09-12] MEDS ORDERED: Lubiprostone 24 MCG CAP PO SCH (21:00)
[2020-09-12] MEDS: Icosapent Ethyl 1 GM CAPSULE PO SCH (21:40)
[2020-09-12] MEDS: Magnesium Oxide 400 MG TAB PO SCH (21:42)
[2020-09-12] MEDS: Trospium 20 MG TAB PO SCH (21:42)
[2020-09-12] MEDS: Famotidine 20 MG TAB PO SCH (21:42)
[2020-09-12] MEDS: Gabapentin 100 MG CAP PO SCH (21:42)
[2020-09-12] MEDS: Ezetimibe 10 MG TAB PO SCH (21:43)
[2020-09-13] MEDS: Potassium Chloride 20 MEQ TAB PO SCH ×5 (00:07→23:52)
[2020-09-13] MEDS: Sodium Chloride 0.9% 1,000 ML IV SCH ×2 (04:00→13:47)
[2020-09-13 04:34] LABS: #Lymphocytes 0.8 thou/uL (1.20-3.40); #Monocytes 0.2 thou/uL (0.11-0.59); #Neutrophils 8.8 thou/uL (1.40-6.50); %Basophils 0.1 % (0.0-1.0); %Eosinophils 0.4 % (0.0-10.0); %Monocytes 2.1 % (0.0-10.0); %Neutrophils 89.5 % (42.0-75.0); Hemoglobin 9.2 g/dL (12.0-16.0); Mean Corpuscular HGB CONC 32.4 g/dL (32.0-36.0); Mean Corpuscular Hemoglobin 27.4 pg (27.0-31.0); Mean Corpuscular Volume 84.5 fL (78.0-98.0); Mean Platelet Volume 8.2 fL (7.4-10.4); Platelet Count 208 thou/uL (130-400); RBC Distribution Width 17.2 % (11.5-14.5); Red Blood Cell (RBC) Count 3.36 mill/uL (4.20-5.40); White Blood Cell (WBC) Count 9.8 thou/uL (4.8-10.8)
[2020-09-13 04:59] LABS: Anion Gap 12 mmol/L (10-20); BUN (Urea Nitrogen) 22 mg/dL (9.8-20.1); Calc. Creatinine Clearance 66 mL/min (70-130); Calcium 7.1 mg/dL (7.8-10.44); Carbon Dioxide 33 mmol/L (23-31); Chloride 91 mmol/L (98-107); Glucose 109 mg/dL (83-110); Magnesium 1.7 mg/dL (1.6-2.6); Sodium 133 mmol/L (136-145)
[2020-09-13 05:09] LABS: Potassium 2.5 mmol/L (3.5-5.1)
[2020-09-13] MEDS: Magnesium Oxide 400 MG TAB PO SCH ×2 (05:50→20:01)
[2020-09-13] MEDS: Levothyroxine Sodium 75 MCG TAB PO SCH (05:51)
[2020-09-13] MEDS: Ipratropium Bromide 0.06% Nasal Inhaler 15ml EA NARE SCH (08:06)
[2020-09-13] MEDS: Carvedilol 3.125 MG TAB PO SCH ×2 (08:07→17:36)
[2020-09-13] MEDS: Lisinopril 2.5 MG TAB PO SCH (08:07)
[2020-09-13] MEDS: Aspirin Chewable 81 MG TAB PO SCH (08:07)
[2020-09-13] MEDS: Famotidine 20 MG TAB PO SCH ×2 (08:09→20:00)
[2020-09-13] MEDS: Potassium Chloride 20 MEQ in Premix Bag 1 BAG IVPB SCH ×2 (08:09→10:40)
[2020-09-13] MEDS: Trospium 20 MG TAB PO SCH ×2 (08:11→20:00)
[2020-09-13] MEDS: Icosapent Ethyl 1 GM CAPSULE PO SCH ×2 (08:12→20:01)
[2020-09-13] MEDS: Enoxaparin Sodium 40 MG/0.4 ML SYRINGE SC SCH (08:16)
[2020-09-13] MEDS ORDERED: DOXYCYCLINE MONOHYDRATE 40 MG PO SCH (09:00)
[2020-09-13] MEDS ORDERED: D MANNOSE 1 GM PO SCH (09:00)
[2020-09-13] MEDS: Ondansetron PF 4 MG/2 ML Vial IVP PRN ×2 (10:43→21:05)
[2020-09-13] MEDS: Acetaminophen 325 MG TAB PO PRN (10:58)
[2020-09-13] MEDS: Cholecalciferol 1,000 UNITS (25 MCG) TAB PO SCH (11:46)
[2020-09-13] MEDS: Ascorbic Acid 500 mg Chewable Tablet PO SCH (11:46)
[2020-09-13] MEDS: Multivitamin W/ Minerals 1 TAB PO SCH (11:46)
[2020-09-13] MEDS ORDERED: Lisinopril 5 MG TAB PO SCH (12:00)
[2020-09-13] MEDS: Ezetimibe 10 MG TAB PO SCH (20:00)
[2020-09-13] MEDS: Gabapentin 100 MG CAP PO SCH (20:01)
[2020-09-13] MEDS: Lorazepam 0.5 MG TAB PO PRN (23:59)
[2020-09-14] MEDS ORDERED: hydrALAZINE 20 MG/ML VIAL SLOW IVP PRN (04:27)
[2020-09-14 05:00] LABS: #Monocytes 0.2 thou/uL (0.11-0.59); #Neutrophils 10.9 thou/uL (1.40-6.50); %Eosinophils 0.2 % (0.0-10.0); %Lymphocytes 8.1 % (21.0-51.0); %Monocytes 1.9 % (0.0-10.0); %Neutrophils 89.8 % (42.0-75.0); Hemoglobin 9.8 g/dL (12.0-16.0); Mean Corpuscular HGB CONC 32.5 g/dL (32.0-36.0); Mean Corpuscular Hemoglobin 27.4 pg (27.0-31.0); Mean Corpuscular Volume 84.3 fL (78.0-98.0); Mean Platelet Volume 7.8 fL (7.4-10.4); Platelet Count 247 thou/uL (130-400); RBC Distribution Width 17.1 % (11.5-14.5); Red Blood Cell (RBC) Count 3.57 mill/uL (4.20-5.40); White Blood Cell (WBC) Count 12.1 thou/uL (4.8-10.8)
[2020-09-14] MEDS: Levothyroxine Sodium 75 MCG TAB PO SCH (05:17)
[2020-09-14] MEDS: Potassium Chloride 20 MEQ TAB PO SCH (05:18)
[2020-09-14 05:29] LABS: Anion Gap 13 mmol/L (10-20); BUN (Urea Nitrogen) 12 mg/dL (9.8-20.1); Calc. Creatinine Clearance 83 mL/min (70-130); Calcium 7.4 mg/dL (7.8-10.44); Carbon Dioxide 27 mmol/L (23-31); Chloride 94 mmol/L (98-107); Glucose 97 mg/dL (83-110); Magnesium 1.5 mg/dL (1.6-2.6); Potassium 5.3 mmol/L (3.5-5.1); Sodium 129 mmol/L (136-145)
[2020-09-14] MEDS: Multivitamin W/ Minerals 1 TAB PO SCH (08:51)
[2020-09-14] MEDS: Famotidine 20 MG TAB PO SCH ×2 (08:53→20:07)
[2020-09-14] MEDS: Lisinopril 2.5 MG TAB PO SCH (08:53)
[2020-09-14] MEDS: Aspirin Chewable 81 MG TAB PO SCH (08:53)
[2020-09-14] MEDS: Carvedilol 3.125 MG TAB PO SCH ×2 (08:53→16:13)
[2020-09-14] MEDS: Trospium 20 MG TAB PO SCH ×2 (08:53→20:07)
[2020-09-14] MEDS: Icosapent Ethyl 1 GM CAPSULE PO SCH ×2 (08:54→20:07)
[2020-09-14] MEDS: Enoxaparin Sodium 40 MG/0.4 ML SYRINGE SC SCH (08:55)
[2020-09-14] MEDS: Ipratropium Bromide 0.06% Nasal Inhaler 15ml EA NARE SCH (08:55)
[2020-09-14] MEDS: Cholecalciferol 1,000 UNITS (25 MCG) TAB PO SCH (08:56)
[2020-09-14] MEDS: Ascorbic Acid 500 mg Chewable Tablet PO SCH (08:57)
[2020-09-14] MEDS: Ondansetron PF 4 MG/2 ML Vial IVP PRN (09:17)
[2020-09-14] MEDS: Lorazepam 0.5 MG TAB PO PRN ×2 (09:17→20:13)
[2020-09-14] MEDS ORDERED: Furosemide 40 MG/4 ML VIAL SLOW IVP SCH (10:45)
[2020-09-14] MEDS ORDERED: Magnesium 2 GM/50 ML 2 GM in Premix Bag 1 BAG IVPB SCH (11:00)
[2020-09-14 17:21] LABS: Magnesium 1.9 mg/dL (1.6-2.6); Potassium 5.5 mmol/L (3.5-5.1)
[2020-09-14] MEDS: Ezetimibe 10 MG TAB PO SCH (20:07)
[2020-09-14] MEDS: Gabapentin 100 MG CAP PO SCH (20:07)
[2020-09-14] MEDS: Acetaminophen 325 MG TAB PO PRN (20:12)
[2020-09-15] MEDS: Levothyroxine Sodium 75 MCG TAB PO SCH (05:57)
[2020-09-15 07:18] LABS: #Eosinphils 0.1 thou/uL (0.0-0.7); #Lymphocytes 0.8 thou/uL (1.20-3.40); #Monocytes 0.2 thou/uL (0.11-0.59); #Neutrophils 8.3 thou/uL (1.40-6.50); %Basophils 0.5 % (0.0-1.0); %Eosinophils 0.5 % (0.0-10.0); %Lymphocytes 8.9 % (21.0-51.0); %Monocytes 2.4 % (0.0-10.0); %Neutrophils 87.6 % (42.0-75.0); Hemoglobin 9.8 g/dL (12.0-16.0); Mean Corpuscular HGB CONC 33.1 g/dL (32.0-36.0); Mean Corpuscular Hemoglobin 28.1 pg (27.0-31.0); Mean Platelet Volume 7.7 fL (7.4-10.4); Platelet Count 241 thou/uL (130-400); RBC Distribution Width 17.7 % (11.5-14.5); Red Blood Cell (RBC) Count 3.48 mill/uL (4.20-5.40); White Blood Cell (WBC) Count 9.4 thou/uL (4.8-10.8)
[2020-09-15 07:33] LABS: Anion Gap 15 mmol/L (10-20); BUN (Urea Nitrogen) 10 mg/dL (9.8-20.1); Calc. Creatinine Clearance 80 mL/min (70-130); Calcium 7.7 mg/dL (7.8-10.44); Carbon Dioxide 26 mmol/L (23-31); Chloride 95 mmol/L (98-107); Glucose 97 mg/dL (83-110); Potassium 5.2 mmol/L (3.5-5.1); Sodium 131 mmol/L (136-145)
[2020-09-15] MEDS: Icosapent Ethyl 1 GM CAPSULE PO SCH ×2 (09:35→21:20)
[2020-09-15] MEDS: Carvedilol 3.125 MG TAB PO SCH ×2 (09:36→15:45)
[2020-09-15] MEDS: Lisinopril 2.5 MG TAB PO SCH (09:36)
[2020-09-15] MEDS: Aspirin Chewable 81 MG TAB PO SCH (09:36)
[2020-09-15] MEDS: Cholecalciferol 1,000 UNITS (25 MCG) TAB PO SCH (09:36)
[2020-09-15] MEDS: Famotidine 20 MG TAB PO SCH ×2 (09:36→21:32)
[2020-09-15] MEDS: Multivitamin W/ Minerals 1 TAB PO SCH (09:36)
[2020-09-15] MEDS: Trospium 20 MG TAB PO SCH ×2 (09:36→21:20)
[2020-09-15] MEDS: Ascorbic Acid 500 mg Chewable Tablet PO SCH (09:37)
[2020-09-15] MEDS: Ipratropium Bromide 0.06% Nasal Inhaler 15ml EA NARE SCH (09:39)
[2020-09-15] MEDS: Enoxaparin Sodium 40 MG/0.4 ML SYRINGE SC SCH (13:34)
[2020-09-15] MEDS: Ezetimibe 10 MG TAB PO SCH (21:20)
[2020-09-15] MEDS: Nitrofurantoin Monohyd/M-Cryst 100 MG CAP PO SCH (21:20)
[2020-09-15] MEDS: Gabapentin 100 MG CAP PO SCH (21:20)
[2020-09-16] MEDS: Acetaminophen 325 MG TAB PO PRN ×2 (06:33→19:52)
[2020-09-16] MEDS: Levothyroxine Sodium 75 MCG TAB PO SCH (06:48)
[2020-09-16] MEDS: Ondansetron PF 4 MG/2 ML Vial IVP PRN (07:11)
[2020-09-16] MEDS: Icosapent Ethyl 1 GM CAPSULE PO SCH ×2 (09:17→21:42)
[2020-09-16] MEDS: Famotidine 20 MG TAB PO SCH ×2 (09:17→21:09)
[2020-09-16] MEDS: Enoxaparin Sodium 40 MG/0.4 ML SYRINGE SC SCH (09:17)
[2020-09-16] MEDS: Ipratropium Bromide 0.06% Nasal Inhaler 15ml EA NARE SCH (09:18)
[2020-09-16] MEDS: Carvedilol 3.125 MG TAB PO SCH ×2 (09:20→17:27)
[2020-09-16] MEDS: Nitrofurantoin Monohyd/M-Cryst 100 MG CAP PO SCH ×2 (09:20→21:07)
[2020-09-16] MEDS: Trospium 20 MG TAB PO SCH ×2 (09:20→21:09)
[2020-09-16] MEDS: Multivitamin W/ Minerals 1 TAB PO SCH (09:20)
[2020-09-16] MEDS: Aspirin Chewable 81 MG TAB PO SCH (09:25)
[2020-09-16] MEDS: Ascorbic Acid 500 mg Chewable Tablet PO SCH (09:28)
[2020-09-16] MEDS: Lisinopril 2.5 MG TAB PO SCH (09:29)
[2020-09-16] MEDS: Cholecalciferol 1,000 UNITS (25 MCG) TAB PO SCH (09:29)
[2020-09-16 10:16] LABS: Anion Gap 16 mmol/L (10-20); BUN (Urea Nitrogen) 11 mg/dL (9.8-20.1); Calc. Creatinine Clearance 73 mL/min (70-130); Calcium 7.7 mg/dL (7.8-10.44); Carbon Dioxide 26 mmol/L (23-31); Chloride 93 mmol/L (98-107); Glucose 102 mg/dL (83-110); Potassium 4.6 mmol/L (3.5-5.1); Sodium 130 mmol/L (136-145)
[2020-09-16] MEDS ORDERED: Sodium Chloride 0.9% 500 ML IV SCH (13:15)
[2020-09-16 13:29] VITALS: BMI 21.7
[2020-09-16] MEDS: Ezetimibe 10 MG TAB PO SCH (21:07)
[2020-09-16] MEDS: Gabapentin 100 MG CAP PO SCH (21:09)
[2020-09-17 04:48] LABS: Anion Gap 14 mmol/L (10-20); BUN (Urea Nitrogen) 12 mg/dL (9.8-20.1); Calc. Creatinine Clearance 80 mL/min (70-130); Calcium 7.8 mg/dL (7.8-10.44); Carbon Dioxide 25 mmol/L (23-31); Chloride 96 mmol/L (98-107); Glucose 103 mg/dL (83-110); Potassium 4.3 mmol/L (3.5-5.1); Sodium 131 mmol/L (136-145)
[2020-09-17] MEDS: Levothyroxine Sodium 75 MCG TAB PO SCH (06:06)
[2020-09-17] MEDS: Acetaminophen 325 MG TAB PO PRN (06:08)
[2020-09-17] MEDS: Cholecalciferol 1,000 UNITS (25 MCG) TAB PO SCH (09:33)
[2020-09-17] MEDS: Aspirin Chewable 81 MG TAB PO SCH (09:33)
[2020-09-17] MEDS: Ascorbic Acid 500 mg Chewable Tablet PO SCH (09:33)
[2020-09-17] MEDS: Famotidine 20 MG TAB PO SCH (09:33)
[2020-09-17] MEDS: Carvedilol 3.125 MG TAB PO SCH (09:33)
[2020-09-17] MEDS: Icosapent Ethyl 1 GM CAPSULE PO SCH (09:33)
[2020-09-17] MEDS: Enoxaparin Sodium 40 MG/0.4 ML SYRINGE SC SCH (09:33)
[2020-09-17] MEDS: Multivitamin W/ Minerals 1 TAB PO SCH (09:34)
[2020-09-17] MEDS: Lisinopril 2.5 MG TAB PO SCH (09:34)
[2020-09-17] MEDS: Nitrofurantoin Monohyd/M-Cryst 100 MG CAP PO SCH (09:34)
[2020-09-17] MEDS: Trospium 20 MG TAB PO SCH (09:34)
[2020-09-17] MEDS: Ipratropium Bromide 0.06% Nasal Inhaler 15ml EA NARE SCH (11:00)
[2020-09-17 11:45] VITALS: BP 144/60; TEMP 97.7
== END 2020-09-17 15:42 | DRG 640 ==
LOC: 2SE 12:12 → 2NO 09-16 20:53
PROVIDERS: ADMIT Internal Medicine; ATTEND Internal Medicine
DX: E87.6 Hypokalemia (principal); J96.00 Acute respiratory failure, unspecified whether with hypoxia or hypercapnia; N39.0 Urinary tract infection, site not specified; E22.2 Syndrome of inappropriate secretion of antidiuretic hormone; I10 Essential (primary) hypertension; E03.9 Hypothyroidism, unspecified; E78.5 Hyperlipidemia, unspecified; F03.90 Unspecified dementia, unspecified severity, without behavioral disturbance, psychotic disturbance, mood disturbance, and anxiety; E83.42 Hypomagnesemia; E83.51 Hypocalcemia; R79.89 Other specified abnormal findings of blood chemistry; D72.829 Elevated white blood cell count, unspecified; J98.4 Other disorders of lung; K21.9 Gastro-esophageal reflux disease without esophagitis; I25.10 Atherosclerotic heart disease of native coronary artery without angina pectoris; M81.0 Age-related osteoporosis without current pathological fracture; G47.00 Insomnia, unspecified; D64.9 Anemia, unspecified; R53.1 Weakness; F41.9 Anxiety disorder, unspecified; F39 Unspecified mood [affective] disorder; M32.9 Systemic lupus erythematosus, unspecified; E87.70 Fluid overload, unspecified; R13.10 Dysphagia, unspecified; F32.9 Major depressive disorder, single episode, unspecified; R41.82 Altered mental status, unspecified; R29.898 Other symptoms and signs involving the musculoskeletal system; R74.01 Elevation of levels of liver transaminase levels; R91.8 Other nonspecific abnormal finding of lung field; Z20.822 Contact with and (suspected) exposure to COVID-19; Z88.0 Allergy status to penicillin; Z90.49 Acquired absence of other specified parts of digestive tract; Z90.710 Acquired absence of both cervix and uterus; Z98.890 Other specified postprocedural states; Z79.899 Other long term (current) drug therapy; Z88.5 Allergy status to narcotic agent; Z88.8 Allergy status to other drugs, medicaments and biological substances
CPT/HCPCS: 36415; 71045; 80048; 83735; 83880; 83930; 83935; 84300; 84436; 84443; 85025; 87040; 87045; 87046; 87086; 87324; 87427; 87449; 87633; 93306; 94640; J0360; J1650; J1940; J2405; J3475; J3480; J7620; U0002; U0005

== ENCOUNTER 2020-09-19 05:37 | Emergency (ER) | payer MEDICARE, OTHER, SELFPAY ==
[2020-09-19] MEDS ORDERED: Oxymetazoline HCl 0.05% (30 ML BOT) ONE (05:49)
[2020-09-19] MEDS ORDERED: Tranexamic Acid 1,000 MG/10 ML VIAL ONE (06:09)
== END 2020-09-19 07:18 ==
LOC: ERS 05:37
DX: R04.0 Epistaxis (principal); I10 Essential (primary) hypertension; E03.9 Hypothyroidism, unspecified; Z87.19 Personal history of other diseases of the digestive system; Z79.899 Other long term (current) drug therapy; Z85.828 Personal history of other malignant neoplasm of skin
CPT/HCPCS: 30903